=== PATIENT | male | born 1980 | race Caucasian/White ===

== ENCOUNTER 2023-08-19 13:07 | Emergency (ER) | payer SELFPAY ==
[2023-08-19] VITALS (8 sets, daily range): BP systolic 127–166; BP diastolic 74–87; PULSE 59–88; RESP 16–24; TEMP 36.8; O2SAT 94–97; BMI 39.9
--- NOTE | 2023-08-19 13:04 | ECG_ITS ---
APPROVED REPORT Exam: Resting ECG HR:75 bpm ECG Measurements Heart Rate 75 AXES RI 140 P 55 QRSd 117 QRS 56 QT 354 T 70 QTc 383 Conclusion SINUS RHYTHM WITH SINUS ARRHYTHMIA INCOMPLETE RIGHT BUNDLE BRANCH BLOCK [90+ ms QRS DURATION, TERMINAL R IN V1/V2, 40+ ms S IN I/aVL/V4/V5/V6] BORDERLINE ECG UNCONFIRMED REPORT Electronically signed by : Matt Munoz MD 08/20/2023 14:47:38
--- NOTE | 2023-08-19 13:19 | XR_ITS ---
FINAL REPORT TECHNIQUE: Chest PA & Lateral CLINICAL HISTORY: chest pain x 1 day smoker (unknown for how long) COMPARISON: None FINDINGS: 2 views of the chest were performed. The heart size is normal. The mediastinum is within normal limits. There is no acute cardiopulmonary process. Mild chronic changes are noted bilaterally. There are no pleural effusions. There is no pneumothorax. The bony thorax appears intact. IMPRESSION: No acute cardiopulmonary process. Reviewed, Interpreted and Dictated by Cordell Asher MD Transcribed by Gladys Marroquin Authenticated and [facility]
--- NOTE | 2023-08-19 13:30 | PC.NURSE ---
pt to xray
[2023-08-19 13:34] LABS: Basophils # 0.1 K/mm3 (0-0.2); Basophils % 1.1 % (0.1-2.0); Eosinophils # 0.3 K/mm3 (0.0-0.4); Eosinophils % 2.8 % (0.1-12.0); Hematocrit 45.9 % (42.0-52.0); Hemoglobin 15.8 g/dL (14.1-18.0); Lymphocytes # 2.9 K/mm3 (0.7-4.5); Lymphocytes % 31.8 % (10-50); Mean Corpuscular HGB Conc 34.5 g/dL (31.8-35.4); Mean Corpuscular Hemoglobin 32.3 pg (27.0-31.2); Mean Corpuscular Volume 93.6 fl (80-94); Mean Platelet Volume 9.1 fl (7.4-10.4); Monocytes # 0.6 K/mm3 (0.1-1.0); Monocytes % 6.5 % (1.7-9.3); Neutrophils # 5.2 K/mm3 (1.8-7.8); Neutrophils % 57.9 % (37.0-80.0); Platelet Count 249 K/mm3 (142-424); Red Cell Distribution Width 13.1 % (11.5-17.5); White Blood Count 8.9 K/mm3 (4.8-10.8)
--- NOTE | 2023-08-19 13:38 | PC.NURSE ---
pt back to room from xray
[2023-08-19 13:40] LABS: Alanine Aminotransferase 53 U/L (12-78); Albumin Level 4.5 g/dl (3.5-5.0); Albumin/Globulin Ratio 1.5 (1.1-1.8); Alkaline Phosphatase 67 U/L (38-126); Aspartate Amino Transferase 43 U/L (17-59); Bilirubin,Total 0.5 mg/dl (0.2-1.3); Blood Urea Nitrogen 16 mg/dl (9-20); Calcium 8.9 mg/dl (8.4-10.2); Carbon Dioxide 28 mmol/L (22.0-30.0); Chloride 103 mmol/L (98-107); Estimated Glomerular Filt Rate 82 ml/min (>60); GFR (African American) 99 ML/MIN (>60); Glucose 112 mg/dl (74-100); Lipase 73 U/L (23-300); Sodium 138 mmol/L (136-145); Total Protein,Serum 7.5 g/dl (6.3-8.2)
--- NOTE | 2023-08-19 13:44 | HMH.EDGENADL ---
Discharge Plan Disposition Patient Disposition: Home, Self-Care Prescriptions Prescriptions: No Action gabapentin 800 MG Tablet 800 mg PO TID prednisone 20 MG Tablet 20 mg PO BID Qty: 10 0RF Referrals Follow up/Referrals: Provider,Referral, MD [Primary Care Provider] - See instructions Activity Restrictions/Add. Instructions Additional Instructions/Restrictions: Call your family doctor to establish care for this visit to the emergency department and schedule follow-up within 48 hours to ensure improvement. If you have any worsening of your condition or any other concerning signs or symptoms, return to the emergency department or your primary care doctor for further evaluation. Clinical Impressions Clinical Impression: Chest pain Discharge ED Provider: [facility] HPI <Zainab Bell DO - Last Filed: 08/19/23 15:14> General Chief complaint: Chest Pain Stated complaint: cp Time Seen by Provider: 08/19/23 13:13 History of Present Illness HPI narrative: This patient is a 43-year-old male who is a smoker presenting to the emergency department for evaluation with concern for left-sided chest pain. It is nonradiating. He describes it as sharp and stabbing. It is worse with movements. It started just prior to arrival while he was at work. He is a rod welder. He denies experiencing any like this in the past, he denies any other symptoms, such as shortness of breath, nausea, diaphoresis, or other issues. He does not follow regularly with a doctor. No other recent concerns noted. Related Data Home Medications Medication Instructions Recorded Confirmed gabapentin 800 mg tablet 800 mg PO TID back pain 06/09/18 06/09/18 Previous Rx's Medication Instructions Recorded prednisone 20 mg tablet 20 mg PO BID ##10 06/10/18 Allergies Allergy/AdvReac Type Severity Reaction Status Date / Time From Codeine Sulfate Allergy Unknown Uncoded 08/24/17 14:40 From Penicillin V Potassium Allergy Unknown Uncoded 08/24/17 14:40 Penicillin Allergy Unknown Uncoded 08/24/17 14:40 PFSH <Zainab Bell DO - Last Filed: 08/19/23 15:14> [facility] Disclaimer: The information contained in this section may have been updated after the patient was seen, as this information can be updated by other users. Social History (Updated 08/19/23 @ 15:14 by Zainab Bell DO) Smoking Status: Current every day smoker alcohol intake: never current occupational status: employed Travel in the last 8 weeks: None <Zainab Bell DO - Last Filed: 08/19/23 15:14> ROS Obtained: Yes All systems reviewed & no additional complaints except as documented Physical Exam <Zainab Pam BedoyaDO sierra - Last Filed: 08/19/23 15:14> General General appearance: alert, in no apparent distress and obese Head Head exam: atraumatic and normocephalic Eye Eye exam: Present normal appearance, PERRL and EOMI ENT ENT exam: Present normal exam, normal oropharynx, mucous membranes moist and normal external ear exam Neck Neck exam: Present normal inspection, full ROM and trachea midline; Absent tenderness Chest Chest inspection: Present normal inspection and symmetric chest wall rise; Absent tenderness Respiratory Respiratory exam: Present normal lung sounds bilaterally; Absent respiratory distress, wheezes, stridor or accessory muscle use Cardiovascular Cardiovascular exam: Present regular rate and normal rhythm Abdominal Exam Abdominal exam: Present soft; Absent distention, tenderness or guarding Extremities Exam Extremities exam: Present normal inspection, full ROM and normal capillary refill; Absent tenderness or edema Back Exam Back exam: Present normal inspection and full ROM; Absent tenderness Neurological Exam Neurological exam: Present alert, oriented X3, CN II-XII intact and normal gait; Absent motor sensory deficit Psychiatric Psychiatric exam: Present normal affect and normal mood Skin Skin exam: Present warm and dry Medical D
[2023-08-19 14:44] LABS: Troponin I < 0.01 ng/ml (0.00-0.034)
[2023-08-19 16:37] LABS: Troponin I < 0.01 ng/ml (0.00-0.034)
== END 2023-08-19 16:47 | disposition home or self-care (01) ==
PROVIDERS: Emergency Medicine; Emergency Provider Emergency Medicine
DX: R07.9 Chest pain, unspecified (principal); F17.200 Nicotine dependence, unspecified, uncomplicated; I45.19 Other right bundle-branch block
CPT/HCPCS: 71046; 80053; 83690; 84484; 85025; 93005; 99285

== ENCOUNTER 2024-03-08 17:21 | Inpatient (IN) | payer SELFPAY ==
[2024-03-08 17:22] VITALS: BP 123/80; PULSE 114; RESP 18; TEMP 37; O2SAT 96; BMI 38.6
--- NOTE | 2024-03-08 17:22 | PC.NURSE ---
PT REPORTS HEAT STROKE SYMPTOMS PT REPORTS BUILDING FENCE AND BEING HOT ALL DAY. WENT HOME AND SHOWERED AND BECAME DIZZY. REPORTS PAIN ALL OVER B/P 123/80 HR 107 RESP 18 SAT 96% PT PROVIDED BOTTLED WATER, DR JOEL NOTIFIED
--- NOTE | 2024-03-08 17:32 | PC.NURSE ---
came up to registration asking about wait time. Registration asked if patient was having any chest pain, the said no, not today . Let them know we would bring him back as soon as we could.
--- NOTE | 2024-03-08 17:33 | PC.NURSE ---
provided water to patient at this time.
[2024-03-08] MEDS: KETOROLAC 30MG/ML VIAL 15 MG IV (17:59)
[2024-03-08] MEDS: LACTATED RINGERS 1000ML 2,000 ML 999 ML IV (18:00)
[2024-03-08 18:01] VITALS: BP 121/76; PULSE 100; RESP 18; O2SAT 98
--- NOTE | 2024-03-08 18:05 | PC.NURSE ---
DR JOEL AT BEDSIDE
[2024-03-08 18:12] LABS: Basophils # 0.2 K/mm3 (0-0.2); Eosinophils # 0.1 K/mm3 (0.0-0.4); Eosinophils % 0.7 % (0.1-12.0); Hematocrit 54.8 % (42.0-52.0); Hemoglobin 17.9 g/dL (14.1-18.0); Lymphocytes # 2.8 K/mm3 (0.7-4.5); Lymphocytes % 19.3 % (10-50); Mean Corpuscular HGB Conc 32.7 g/dL (31.8-35.4); Mean Corpuscular Hemoglobin 31.7 pg (27.0-31.2); Mean Corpuscular Volume 96.9 fl (80-94); Mean Platelet Volume 9.8 fl (7.4-10.4); Monocytes % 6.7 % (1.7-9.3); Neutrophils # 10.5 K/mm3 (1.8-7.8); Neutrophils % 72.2 % (37.0-80.0); Platelet Count 333 K/mm3 (142-424); Red Blood Count 5.65 M/mm3 (4.60-6.20); Red Cell Distribution Width 13.8 % (11.5-17.5); White Blood Count 14.5 K/mm3 (4.8-10.8)
[2024-03-08 18:18] LABS: Chloride 102 mmol/L (98-107)
[2024-03-08 18:19] LABS: Sodium 142 mmol/L (136-145)
[2024-03-08 18:21] LABS: Alanine Aminotransferase 85 U/L (12-78); Aspartate Amino Transferase 59 U/L (17-59); Blood Urea Nitrogen 21 mg/dl (9-20); Creatine Kinase 354 U/L (55-170); Creatinine Clearance Estimated 49 mL/min (50-200); Estimated Glomerular Filt Rate 19 ml/min (>60); GFR (African American) 23 ML/MIN (>60); Magnesium 1.9 mg/dl (1.6-2.3)
[2024-03-08 18:22] LABS: Albumin Level 5.8 g/dl (3.5-5.0); Albumin/Globulin Ratio 1.2 (1.1-1.8); Alkaline Phosphatase 126 U/L (38-126); Bilirubin,Total 0.9 mg/dl (0.2-1.3); Calcium 11.5 mg/dl (8.4-10.2); Carbon Dioxide 20 mmol/L (22.0-30.0); Glucose 175 mg/dl (74-100); Total Protein,Serum 10.8 g/dl (6.3-8.2)
--- NOTE | 2024-03-08 18:25 | PC.NURSE ---
DR JOEL SPEAKING WITH DR ELKINS
--- NOTE | 2024-03-08 18:27 | HMH.EDGENADL ---
Discharge Plan Disposition Patient Disposition: Admitted Chief Complaint: Weakness Prescriptions Prescriptions: No Action gabapentin 800 MG Tablet 800 mg PO TID prednisone 20 MG Tablet 20 mg PO BID Qty: 10 0RF Referrals Follow up/Referrals: Provider,Referral, MD [Primary Care Provider] - See instructions Clinical Impressions Clinical Impression: Acute renal failure due to rhabdomyolysis, MUSA (acute kidney injury), Acute dehydration, Heat exhaustion Discharge ED Provider: [facility] HPI General Chief complaint: Weakness Stated complaint: WEAKNESS Time Seen by Provider: 03/08/24 18:00 Mode of Arrival: Ambulatory Source of Information: Patient Limitations: No Limitations Description of Symptoms (Recalled from ER Triage Doc. by RN): PT REPORTS HEAT STROKE HAS BEEN BUILDING FENCE ALL DAY. REPORTS GENERALIZED PAIN AND MUSCLE SPASMS. History of Present Illness HPI narrative: Please note that above description of symptoms, in this electronic medical record under categorization of recalled from ER triage doctor by RN are reflective of an initial nursing assessment, however, is not reflective of my full history and physical exam that was personally taken and clarified. Consequentially, this preceding description of symptoms, which may include the patient's categorized chief complaint in the EMR, do not reflect my personal clinical impression, and the ultimate description of history of present illness and patient stated complaints should be deferred to this section of the note. Unless stated otherwise or congruent with this section of the note, additional signs, symptoms, or incongruence should be interpreted as inaccurate with my clinical impression. Related Data Home Medications Medication Instructions Recorded Confirmed gabapentin 800 mg tablet 800 mg PO TID back pain 06/09/18 06/09/18 Previous Rx's Medication Instructions Recorded prednisone 20 mg tablet 20 mg PO BID ##10 06/10/18 Allergies Allergy/AdvReac Type Severity Reaction Status Date / Time From Codeine Sulfate Allergy Unknown Uncoded 08/24/17 14:40 From Penicillin V Potassium Allergy Unknown Uncoded 08/24/17 14:40 Penicillin Allergy Unknown Uncoded 08/24/17 14:40 [facility] Disclaimer: The information contained in this section may have been updated after the patient was seen, as this information can be updated by other users. Social History (Updated 08/19/23 @ 15:14 by Zainab Bell DO) Smoking Status: Current every day smoker alcohol intake: never current occupational status: employed Travel in the last 8 weeks: None ROS Obtained: Yes All systems reviewed & no additional complaints except as documented Physical Exam General General appearance: alert and in no apparent distress Head Head exam: atraumatic and normocephalic Eye Eye exam: Present normal appearance, PERRL and EOMI ENT ENT exam: Present mucous membranes dry Neck Neck exam: Present normal inspection, full ROM and trachea midline Respiratory Respiratory exam: Present normal lung sounds bilaterally; Absent respiratory distress, wheezes, stridor, accessory muscle use or prolonged expiratory phase Cardiovascular Cardiovascular exam: Present regular rate and normal rhythm Abdominal Exam Abdominal exam: Present soft; Absent distention, tenderness, guarding, rebound or rigidity Extremities Exam Extremities exam: Absent edema Neurological Exam Neurological exam: Present alert, oriented X3, CN II-XII intact and normal gait; Absent motor sensory deficit Skin Skin exam: Present warm, dry and erythema (Diffuse erythema, sunburn); Absent diaphoresis Medical Decision Making Medical Records Medical records reviewed: Yes I reviewed the patient's medical records. Sinan Inquiry Pt receiving controlled substance: No Sinan was queried for this patient: No Vital Signs: 03/08/24 17:22 03/08/24 18:01 Temperature 98.6 F Temperature Source Oral Pulse Rate 100 H Pulse Rate [Radial] 114 H Respiratory Rate 18 18 Blood Pressure 121/76 Blood Pressure [Left Arm] 123/80 Blood Pressure Mean [Left Arm] 94 Blood Pressure Source [Left Arm] Automatic Cuff Blood Pressure Position [Left Arm] Sitting 02 Sat by Pulse Oximetry 96 98 Oxygen Delivery Method Room Air Room Air Lab Data Lab Results 03/08/24 17:45: WBC 14.5 H, RBC 5.65, Hgb 17.9, Hct 54.8 H, MCV 96.9 H, MCH 31.7 H, MCHC 32.7, RDW 13.8, Plt Count 333, MPV 9.8, Neut % (Auto) 72.2, Lymph % (Auto) 19.3, [place] % (Auto) 6.7, Eos % (Auto) 0.7, Baso % (Auto) 1.0, Neut # (Auto) 10.5 H, Lymph # (Auto) 2.8, [place] # (Auto) 1.0, Eos # (Auto) 0.1, Baso # (Auto) 0.2, Sodium 142, Potassium 4.0, Chloride 102, Carbon Dioxide 20 L, Anion Gap 24.0 H, BUN 21 H, Creatinine 3.60 H, Estimated Creat Clear 49, Estimated GFR 19 L*, Est GFR ( Amer) 23 L, Glucose 175 H, Calcium 11.5 H, Magnesium 1.9, Total Bilirubin 0.9, AST 59, ALT 85 H, Alkaline Phosphatase 126, Total Creatine Kinase 354 H, Total Protein 10.8 H D, Albumin 5.8 H, Globulin 5.0 H, Albumin/Globulin Ratio 1.2 03/08/24 17:45 03/08/24 17:45 Orders (Tests/Meds): ED MEDICATIONS Generic Name Dose Route Start Last Admin Trade Name Freq PRN Reason Stop Dose Admin Lactated Ringer's 2,000 mls @ 999 mls/hr 03/08/24 17:55 03/08/24 18:00 Lactated Ringer's 1000 Ml Bag IV 03/08/24 19:55 999 mls/hr .Q2H1M ONE Administration Sodium Chloride 10 ml 03/08/24 17:55 Sodium Chloride 0.9% 10ml Flush Syringe IV 04/07/24 17:54 NEEDED PRN Maintain IV Site Discontinued Medications Generic Name Dose Route Start Last Admin Trade Name Freq PRN Reason Stop Dose Admin Ketorolac Tromethamine 15 mg 03/08/24 17:55 03/08/24 17:59 Ketorolac 30mg/Ml Vial IV 03/08/24 17:56 15 mg ONCE ONE Administration ORDERS Category Date Time Status CK [Creatine Kinase] Stat Lab 03/08/24 17:45 Completed Complete Blood Count Auto Diff Stat Lab 03/08/24 17:45 Completed Comprehensive Metabolic Panel Stat Lab 03/08/24 17:45 Completed Magnesium Stat Lab 03/08/24 17:45 Completed Medical Decision Narrative: 43-year-old male history of COPD still smoking 2 packs a day presenting with concern for heat exhaustion. Patient worked out in the sun with heat index right around 100 ?F only drank a couple bottles of water today. [place] nauseated, lightheaded, muscle cramps. Got in the shower took a hot shower. Thought this would help. [place] generally weak, started having muscle cramps. Vomited twice, nonbloody. Patient did not have syncopal episode or confusion. Patient brought in by family because he was feeling so poorly. States that he is no longer feeling nauseated, just weak and intermittently having muscle cramps. History was obtained via conversation with patient. On arrival, patient hemodynamically stable, alert, oriented x4, appropriate, GCS 15, moving all extremities spontaneously, pupils equal and reactive to light. Full physical exam performed and significant for sunburn male in no acute distress. Intermittently having extremity cramps. Differential includes heat exhaustion, metabolic, rhabdomyolysis, dehydration, MUSA, among others. Patient was given 2 L of fluid for symptomatic management and correction of underlying abnormalities. Workup independently interpreted and significant for leukocytosis 14.5, hemoglobin hemoconcentrated at 18. Patient's chemistry concerning for metabolic acidosis with CO2 low at 20, anion gap 24, creatinine 3.6, BUN 21. Patient's GFR 19 from normal baseline. Patient's CK also elevated at 354. On reevaluation, patient resting at baseline, feeling better, no nausea after 2 L fluids. Hospital medicine contacted and case was discussed at length for admission given MUSA and rhabdo. Agreeable to admission. It Technical Support Specialist disclaimer Much of this encounter note is an electronic channel program manager spoken language to printed text. Electronic channel program manager of the spoken language may permit errors. Although I have reviewed the note, some errors may still exist. Critical Care Critical Care Time Critical Care Time: Yes (Renal) Attestation: On 03/08/24, the high probability of a clinically significant, sudden or life threatening deterioration of the following system(s) required my full and direct attention, intervention and personal management. The time I documented below is in addition to time spent performing reported procedures but includes the following listed in this critical care notation. Total Time Total Critical Care Time: 35
--- NOTE | 2024-03-08 18:28 | PC.NURSE ---
FINISHED GOODS PLANNER NOTIFIED OF ADMISSION
--- NOTE | 2024-03-08 18:33 | PC.NURSE ---
DR JOEL AT BEDSIDE TO UPDATE PT
--- NOTE | 2024-03-08 18:39 | PC.NURSE ---
Registration called in regards to patient not being switched in computer to admission.
--- NOTE | 2024-03-08 18:46 | PC.NURSE ---
Called report to Jeannette Méndez RN
[2024-03-08 18:52] VITALS: BP 121/76; PULSE 100; RESP 18; TEMP 37.1; O2SAT 100
[2024-03-08 19:00] VITALS: BP 138/84; PULSE 95; RESP 18; TEMP 36.6; O2SAT 98; BMI 36.8
[2024-03-08] MEDS: LACTATED RINGERS 1000ML 1,000 ML 150 ML IV (19:41)
--- NOTE | 2024-03-08 19:49 | P.HP_ITS ---
History of Present Illness *Admission Date: 03/08/24 *Reason for visit:: generalized pain and muscle spams *History of present illness: This is a 43-year-old obese male with significant history of daily heavy smoker, 2 packs a day presented to ED with c/o generalized pain and muscle spams. He expressed concern for heat exhaustion. Patient worked out in the sun. [place] nauseated, lightheaded, muscle cramps. Got in the shower took a hot shower. Thought this would help. [place] generally weak, started having muscle cramps. Vomited twice, nonbloody. Patient did not have syncopal episode or confusion. Patient brought in by family because he was feeling so poorly. States that he is no longer feeling nauseated, just weak and intermittently having muscle cramps. History was obtained via conversation with patient. Admitted for further management [facility] Disclaimer: The information contained in this section may have been updated after the patient was seen, as this information can be updated by other users. Surgical History (Updated 03/08/24 @ 19:57 by Brigitte Payne RN) H/O tooth extraction Social History (Updated 03/08/24 @ 19:57 by Brigitte Payne RN) Smoking Status: Current every day smoker alcohol intake: never current occupational status: employed Travel in the last 8 weeks: None Review of Systems Review of Systems Review of systems:: pertinent systems reviewed and negative unless documented below Meds Home Medications and Allergies Home Medications Medication Instructions Recorded Confirmed Type No Known Home Medications 03/09/24 03/09/24 History New Prescriptions to Start Prescriptions: Allergies Allergy/AdvReac Type Severity Reaction Status Date / Time codeine Allergy Unknown Verified 03/09/24 08:54 allergy reaction Penicillins Allergy Unknown Verified 03/09/24 08:54 allergy reaction Exam Data for Last 24 hours Vital signs and Labs for Last 24 Hours: Temp Pulse Resp BP Pulse Ox O2 Del Method 98 F 95 H 18 138/84 98 Room Air 03/08/24 19:00 03/08/24 19:00 03/08/24 19:00 03/08/24 19:00 03/08/24 19:00 03/08/24 19:00 Laboratory Results - last 24 hr 03/08/24 17:45: WBC 14.5 H, RBC 5.65, Hgb 17.9, Hct 54.8 H, MCV 96.9 H, MCH 31.7 H, MCHC 32.7, RDW 13.8, Plt Count 333, MPV 9.8, Neut % (Auto) 72.2, Lymph % (Auto) 19.3, [place] % (Auto) 6.7, Eos % (Auto) 0.7, Baso % (Auto) 1.0, Neut # (Auto) 10.5 H, Lymph # (Auto) 2.8, [place] # (Auto) 1.0, Eos # (Auto) 0.1, Baso # (Auto) 0.2, Sodium 142, Potassium 4.0, Chloride 102, Carbon Dioxide 20 L, Anion Gap 24.0 H, BUN 21 H, Creatinine 3.60 H, Estimated Creat Clear 49, Estimated GFR 19 L*, Est GFR ( Amer) 23 L, Glucose 175 H, Calcium 11.5 H, Magnesium 1.9, Total Bilirubin 0.9, AST 59, ALT 85 H, Alkaline Phosphatase 126, Total Creatine Kinase 354 H, Total Protein 10.8 H D, Albumin 5.8 H, Globulin 5.0 H, Albumin/Globulin Ratio 1.2 I & O for Last 24 hours: Intake & Output 03/05/24 03/06/24 03/07/24 03/08/24 23:59 23:59 23:59 23:59 Weight 123.559 kg Constitutional Constitutional: no acute distress, obese and cooperative *Routine HEENT Exam Head: Present normocephalic and atraumatic Eye: Present EOMI and PERRL ENT: Present mucous membranes moist *Routine Neck Exam Neck: Present supple; Absent lymphadenopathy *Routine Respiratory Exam Respiratory: Present CTA bilaterally, normal respiratory effort and symmetric chest movement; Absent respiratory distress *Routine Cardiovascular Exam Cardiovascular: Present RRR, Normal S1 and Normal S2 *Routine Abdominal Exam Abdominal: Present soft, normoactive bowel sounds and obese; Absent tenderness *Routine Rectal Exam Rectal:: deferred *Routine Genitalia Exam Genitalia:: deferred *Routine Extremities Exam Extremities: Absent cyanosis, clubbing or edema *Routine Skin Exam Skin: Present erythema and warm; Absent rash Comments: extensive upper body sunburn *Routine Neurological Exam Neurological: Present alert, oriented X3, normal reflexes, moving all extremities and normal speech Routine Psychiatric Exam Psychiatric: Present normal thought process and good insight H&P: Result Imaging and Cardiology EKG: Status: image reviewed by me, Preliminary report and final report Assessment and Plan *Assessment and plan (1) Acute renal failure due to rhabdomyolysis: Status: Acute Category: Medical Code(s): N17.9 - Acute kidney failure, unspecified; M62.82 - Rhabdomyolysis (2) Acute dehydration: Status: Acute Category: Medical Code(s): E86.0 - Dehydration (3) Heat exhaustion: Status: Acute Qualifiers: Encounter type: initial encounter Qualified Code(s): T67.5XXA - Heat exhaustion, unspecified, initial encounter Category: Medical Code(s): T67.5XXA - Heat exhaustion, unspecified, initial encounter (4) Current smoker: Status: Acute Category: Social Hx Code(s): F17.200 - Nicotine dependence, unspecified, uncomplicated (5) Obesity: Status: Acute Qualifiers: Body mass index: BMI 36.0-36.9 Obesity classification: adult class 2 (BMI 35 - 39.9) Obesity type: unspecified obesity type Serious obesity comorbidity presence: unspecified whether serious comorbidity present Qualified Code(s): E66.9 - Obesity, unspecified; Z68.36 - Body mass index [BMI] 36.0-36.9, adult Category: Medical Code(s): E66.9 - Obesity, unspecified Plan 43 year-old obese male with significant history of daily heavy smoker, 2 packs a day presented to ED with c/o generalized pain and muscle spams. He expressed concern for heat exhaustion.On arrival, patient hemodynamically stable, alert, oriented x4, appropriate, GCS 15, moving all extremities spontaneously, positive for significant sunburn. No in acute distress. Intermittently having extremity cramps. Initial work up showed significant leukocytosis 14.5, hemoglobin hemoconcentrated at 18. Patient's chemistry concerning for metabolic acidosis with CO2 low at 20, anion gap 24, creatinine 3.6, BUN 21. Patient's GFR 19 from normal baseline. Patient's CK also elevated at 354. Concerned for MUSA with rhabdo. Finding discussed with the ED. we agreed for admission and inpatient management. Plan as follow: -Acute renal failure with rhabdomyolysis secondary to heatstroke and acute dehydration: Admit patient for inpatient management. Continue IV resuscitation. Currently LR at 125 MLS per hour. Monitor renal output. Avoid nephrotoxic medication Tylenol for pain management Methocarbamol 1000 mg twice daily for muscle spasm Repeat labs in the morning Watch creatinine and CK Rest of the vitals per unit Encourage increasing p.o. intake -Current daily smoker Counseling about smoking cessation. On nicotine patch -Obesity: Encouraged him to start weight reduction management. PCP to follow-up abnormal BMI Lovenox for DVT prophylaxis. Protonix for GI protection Full code Regular diet Rounded on patient after nurse practitioner. Personally examined and interviewed patient. Agree with exam findings and care plan as documented.
[2024-03-08 20:00] VITALS: BP 122/81; PULSE 83; RESP 16; TEMP 36.7; O2SAT 96
[2024-03-08] MEDS: ENOXAPARIN 40MG/0.4ML SYRINGE 40 MG SQ (21:59)
[2024-03-08] MEDS: NICOTINE 21MG/24HR PATCH 21 MG TD (21:59)
[2024-03-08] MEDS: ACETAMINOPHEN 325MG TAB 650 MG PO (22:00)
[2024-03-08] MEDS: METHOCARBAMOL 500MG TABLET 1000 MG PO (22:00)
[2024-03-08 22:31] LABS: Chloride 101 mmol/L (98-107); Potassium 4.1 mmoL/L (3.5-5.1); Sodium 140 mmol/L (136-145)
[2024-03-08 22:34] LABS: Anion Gap 16.1 mEq/L (5-15); Blood Urea Nitrogen 25 mg/dl (9-20); Carbon Dioxide 27 mmol/L (22.0-30.0); Creatinine Clearance Estimated 43 mL/min (50-200); Estimated Glomerular Filt Rate 17 ml/min (>60); GFR (African American) 21 ML/MIN (>60)
[2024-03-08 22:35] LABS: Calcium 10.5 mg/dl (8.4-10.2); Glucose 116 mg/dl (74-100)
[2024-03-09] MEDS: LACTATED RINGERS 1000ML 1,000 ML 150 ML IV ×3 (02:13→15:34)
[2024-03-09 04:00] VITALS: BP 129/76; PULSE 61; RESP 16; TEMP 36.7; O2SAT 96; BMI 37.8
--- NOTE | 2024-03-09 06:11 | PC.NURSE ---
Pt has rested the majority of the night. He did complain of some muscle spasms in his lower back early in the shift . An order for methocarbamol was obtained to help with the pain. Family member has been at bedside throughout shift. He has had no other complaints at this time call light within reach.
[2024-03-09 06:16] LABS: Basophils # 0.1 K/mm3 (0-0.2); Eosinophils # 0.2 K/mm3 (0.0-0.4); Monocytes # 0.9 K/mm3 (0.1-1.0)
[2024-03-09 06:24] LABS: Chloride 104 mmol/L (98-107); Potassium 3.1 mmoL/L (3.5-5.1); Sodium 136 mmol/L (136-145)
[2024-03-09 06:26] LABS: Alanine Aminotransferase 49 U/L (12-78); Alkaline Phosphatase 82 U/L (38-126); Anion Gap 12.1 mEq/L (5-15); Aspartate Amino Transferase 36 U/L (17-59); Bilirubin,Total 0.6 mg/dl (0.2-1.3); Blood Urea Nitrogen 31 mg/dl (9-20); Carbon Dioxide 23 mmol/L (22.0-30.0); Creatine Kinase 690 U/L (55-170); Estimated Glomerular Filt Rate 20 ml/min (>60); GFR (African American) 24 ML/MIN (>60); Glucose 122 mg/dl (74-100)
[2024-03-09 06:27] LABS: Albumin Level 4.1 g/dl (3.5-5.0); Albumin/Globulin Ratio 1.4 (1.1-1.8); Calcium 9.2 mg/dl (8.4-10.2); Magnesium 1.9 mg/dl (1.6-2.3); Total Protein,Serum 7.1 g/dl (6.3-8.2)
[2024-03-09 06:41] LABS: Basophils % 0.9 % (0.1-2.0); Hematocrit 45.4 % (42.0-52.0); Lymphocytes # 3.5 K/mm3 (0.7-4.5); Lymphocytes % 29.4 % (10-50); Mean Corpuscular HGB Conc 32.7 g/dL (31.8-35.4); Mean Corpuscular Hemoglobin 32.4 pg (27.0-31.2); Mean Platelet Volume 9.8 fl (7.4-10.4); Monocytes % 7.7 % (1.7-9.3); Neutrophils # 7.2 K/mm3 (1.8-7.8); Neutrophils % 60.1 % (37.0-80.0); Platelet Count 238 K/mm3 (142-424); Red Blood Count 4.58 M/mm3 (4.60-6.20); Red Cell Distribution Width 13.7 % (11.5-17.5)
[2024-03-09 06:42] LABS: Creatinine Clearance Estimated 51 mL/min (50-200)
[2024-03-09 06:44] LABS: Hemoglobin 14.9 g/dL (14.1-18.0)
[2024-03-09 08:00] VITALS: BP 122/79; PULSE 64; RESP 20; TEMP 36.8; O2SAT 95
[2024-03-09] MEDS: METHOCARBAMOL 500MG TABLET 1000 MG PO ×2 (09:02→20:01)
[2024-03-09] MEDS: POTASSIUM CHLORIDE 20MEQ TAB 40 MEQ PO ×3 (09:03→20:02)
--- NOTE | 2024-03-09 10:45 | P.PN_ITS ---
Subjective *Date: 03/09/24 *Time: 11:32 Interval history: Patient feeling better this morning. Denies any muscle aches or pains. No nausea or vomiting. No chest pain or shortness of breath. Stable on room air. Making urine. Medical Exam Vital signs and Labs for Last 24 Hours: Vital Signs Temp Pulse Pulse Resp BP BP Pulse Ox 03/09/24 09:00 03/09/24 08:00 03/09/24 08:00 98.2 F 64 20 122/79 95 03/09/24 06:59 03/09/24 05:00 03/09/24 04:00 98.0 F 61 16 129/76 96 03/09/24 03:00 03/09/24 01:00 03/08/24 22:58 03/08/24 21:00 03/08/24 20:00 98.1 F 83 16 122/81 96 03/08/24 19:59 03/08/24 19:00 98 F 95 H 18 138/84 98 03/08/24 18:52 98.7 F 100 H 18 121/76 03/08/24 18:01 100 H 18 121/76 98 03/08/24 17:22 98.6 F 114 H 18 123/80 96 O2 Del Method 03/09/24 09:00 Room Air 03/09/24 08:00 Room Air 03/09/24 08:00 Room Air 03/09/24 06:59 Room Air 03/09/24 05:00 Room Air 03/09/24 04:00 Room Air 03/09/24 03:00 Room Air 03/09/24 01:00 Room Air 03/08/24 22:58 Room Air 03/08/24 21:00 Room Air 03/08/24 20:00 Room Air 03/08/24 19:59 Room Air 03/08/24 19:00 Room Air 03/08/24 18:52 Room Air 03/08/24 18:01 Room Air 03/08/24 17:22 Room Air Intake and Output 03/08/24 03/09/24 03/09/24 23:59 07:59 15:59 Intake Total 1655 / 5 460 / 2115 Output Total 0 / 0 150 / 150 Balance 0 / 0 1505 / 1965 460 / 1965 Intake: Intake, Oral Amount 460 / 460 Intake, Total IV Amount 1655 / 1655 Lactated Ringers 1000ML 1,000 1655 / 1655 ml @ 150 mls/hr IV .[id number] [facility] Rx#:[id number] Output: Output, Urine Amount 0 / 0 150 / 150 Other: Number of Unmeasured Voids 1 Weight 123.559 kg 126.609 kg Patient Weight 03/09/24 23:59 Weight 126.609 kg Laboratory Results - last 24 hr 03/08/24 17:45: WBC 14.5 H, RBC 5.65, Hgb 17.9, Hct 54.8 H, MCV 96.9 H, MCH 31.7 H, MCHC 32.7, RDW 13.8, Plt Count 333, MPV 9.8, Neut % (Auto) 72.2, Lymph % (Auto) 19.3, [place] % (Auto) 6.7, Eos % (Auto) 0.7, Baso % (Auto) 1.0, Neut # (Aut o) 10.5 H, Lymph # (Auto) 2.8, [place] # (Auto) 1.0, Eos # (Auto) 0.1, Baso # (Auto) 0.2, Sodium 142, Potassium 4.0, Chloride 102, Carbon Dioxide 20 L, Anion Gap 24.0 H, BUN 21 H, Creatinine 3.60 H, Estimated Creat Clear 49, Estimated GFR 19 L*, Est GFR ( Amer) 23 L, Glucose 175 H, Calcium 11.5 H, Magnesium 1.9, Total Bilirubin 0.9, AST 59, ALT 85 H, Alkaline Phosphatase 126, Total Creatine Kinase 354 H, Total Protein 10.8 H D, Albumin 5.8 H, Globulin 5.0 H, Albumin/Globulin Ratio 1.2 03/08/24 22:13: Sodium 140, Potassium 4.1, Chloride 101, Carbon Dioxide 27, Anion Gap 16.1 H, BUN 25 H, Creatinine 3.90 H, Estimated Creat Clear 43, Estimated GFR 17 L*, Est GFR ( Amer) 21 L, Glucose 116 H D, Calcium 10.5 H 03/09/24 05:29: WBC 12.0 H, RBC 4.58 L, Hgb 14.9 D, Hct 45.4, MCV 99.0 H, MCH 32.4 H, MCHC 32.7, RDW 13.7, Plt Count 238 D, MPV 9.8, Neut % (Auto) 60.1, Lymph % (Auto) 29.4, [place] % (Auto) 7.7, Eos % (Auto) 2.0, Baso % (Auto) 0.9, Neut # (Auto) 7.2, Lymph # (Auto) 3.5, [place] # (Auto) 0.9, Eos # (Auto) 0.2, Baso # (Auto) 0.1, Sodium 136, Potassium 3.1 L D, Chloride 104, Carbon Dioxide 23, Anion Gap 12.1, BUN 31 H, Creatinine 3.40 H, Estimated Creat Clear 51, Estimated GFR 20 L, Est GFR ( Amer) 24 L, Glucose 122 H, Calcium 9.2, Magnesium 1.9, Total Bilirubin 0.6, AST 36 D, ALT 49 D, Alkaline Phosphatase 82, Total Creatine Kinase 690 H* D, Total Protein 7.1 D, Albumin 4.1 D, Globulin 3.0, Albumin/Globulin Ratio 1.4 I & O for Labs for Last 24 Hours: Intake & Output 03/06/24 03/07/24 03/08/24 03/09/24 23:59 23:59 23:59 23:59 Intake Total 2115 / 2115 Output Total 0 / 0 150 / 150 Balance 0 / 0 1964 / 1964 Weight 123.559 kg 126.609 kg Constitutional: Present no acute distress, obese and cooperative Head: Present atraumatic and normocephalic ENT: Present normal exam Respiratory: Present normal respiratory effort; Absent rhonchi, wheezes or crack les Cardiac: Present Reg Rate and Rhythm GI: Present soft and normal bowel sounds; Absent distention or tenderness Extremities: Present normal inspection and full ROM; Absent tenderness Skin: Present intact; Absent erythema Neuro: Present Grossly Intact, alert, awake, oriented x 3 and moves all extremities Assessment and Plan *Assessment and plan (1) Acute renal failure due to rhabdomyolysis: Status: Acute Category: Medical Code(s): N17.9 - Acute kidney failure, unspecified; M62.82 - Rhabdomyolysis (2) Acute dehydration: Status: Acute Category: Medical Code(s): E86.0 - Dehydration (3) Heat exhaustion: Status: Acute Qualifiers: Encounter type: initial encounter Qualified Code(s): T67.5XXA - Heat exhaustion, unspecified, initial encounter Category: Medical Code(s): T67.5XXA - Heat exhaustion, unspecified, initial encounter (4) Current smoker: Status: Acute Category: Social Hx Code(s): F17.200 - Nicotine dependence, unspecified, uncomplicated (5) Obesity: Status: Acute Qualifiers: Body mass index: BMI 36.0-36.9 Obesity classification: adult class 2 (BMI 35 - 39.9) Obesity type: unspecified obesity type Serious obesity comorbidity presence: unspecified whether serious comorbidity present Qualified Code(s): E66.9 - Obesity, unspecified; Z68.36 - Body mass index [BMI] 36.0-36.9, adult Category: Medical Code(s): E66.9 - Obesity, unspecified Plan 43 year-old obese male with significant history of daily heavy smoker, 2 packs a day presented to ED with c/o generalized pain and muscle spams. He expressed concern for heat exhaustion.On arrival, patient hemodynamically stable, alert, oriented x4, appropriate, GCS 15, moving all extremities spontaneously, positive for significant sunburn. In no acute distress. Intermittently having extremity cramps. Initial work up showed significant leukocytosis 14.5, hemoglobin hemoconcentrated at 18. Patient's chemistry concerning for metabolic acidosis with CO2 low at 20, anion gap 24, creatinine 3.6, BUN 21. Patient's GFR 19 from normal baseline. Patient's CK also elevated at 354. Concerned for MUSA with rhabdo. Finding discussed with the ED. we agreed for admission and inpatient management. Feeling better today. Kidney function still abnormal. Continues to require inpatient management with IV hydration. Serial labs. Problems addressed as follows: Acute renal failure with rhabdomyolysis secondary to heatstroke and acute dehydration: Serial labs, repeat BMP this evening with repeat CMP, CBC, magnesium ordered for the morning. Continue IV resuscitation. Currently LR at 125 MLS per hour until 8 PM this evening Having urine output. Kidney function with BUN 31, creatinine 3.4. Avoid nephrotoxic medication Tylenol for pain management Methocarbamol 1000 mg twice daily for muscle spasm Repeat CK up to 690 this morning. Repeat level ordered for the morning. -Current daily smoker: Counseling about smoking cessation; On nicotine patch -Obesity: Complicates all aspects of his care. Lovenox for DVT prophylaxis. Full code Regular diet
[2024-03-09 16:00] VITALS: BP 125/97; PULSE 67; RESP 16; TEMP 36.7; O2SAT 96
[2024-03-09 18:06] LABS: Chloride 104 mmol/L (98-107); Potassium 3.7 mmoL/L (3.5-5.1); Sodium 137 mmol/L (136-145)
[2024-03-09 18:09] LABS: Anion Gap 7.7 mEq/L (5-15); Blood Urea Nitrogen 29 mg/dl (9-20); Carbon Dioxide 29 mmol/L (22.0-30.0); Creatinine Clearance Estimated 91 mL/min (50-200); Estimated Glomerular Filt Rate 39 ml/min (>60); GFR (African American) 47 ML/MIN (>60); Glucose 150 mg/dl (74-100)
--- NOTE | 2024-03-09 18:58 | PC.NURSE ---
A&OX4. TOLERATING RA WELL. AMBULATES INDEPENDENTLY IN ROOM. FAMILY REMAINS AT BEDSIDE. HAS HAD NO NEEDS OR C/O THUS FAR THIS SHIFT. REFUSES TO DRINK WATER, EDUCATION ON IMPORTANCE. IS HAVING MORE URINE OUTPUT. RECEIVING FLUIDS, VSS.
[2024-03-09 20:00] VITALS: BP 146/76; PULSE 71; RESP 18; TEMP 36.7; O2SAT 100
[2024-03-09] MEDS: ENOXAPARIN 40MG/0.4ML SYRINGE 40 MG SQ (20:01)
[2024-03-10 04:00] VITALS: BP 99/75; PULSE 69; RESP 20; TEMP 36.7; O2SAT 96; BMI 37.8
--- NOTE | 2024-03-10 06:16 | PC.NURSE ---
Pt is A&Ox4 and tolerating room air. He has been getting around the room independently. He has slept the majority of the shift. Family member has remained at bedside. He has no complaints at this time, call light within reach.
[2024-03-10 06:20] LABS: Basophils # 0.1 K/mm3 (0-0.2); Basophils % 0.8 % (0.1-2.0); Eosinophils # 0.1 K/mm3 (0.0-0.4); Eosinophils % 1.8 % (0.1-12.0); Hematocrit 42.1 % (42.0-52.0); Hemoglobin 13.9 g/dL (14.1-18.0); Lymphocytes # 3.1 K/mm3 (0.7-4.5); Mean Corpuscular HGB Conc 33.1 g/dL (31.8-35.4); Mean Corpuscular Hemoglobin 31.9 pg (27.0-31.2); Mean Corpuscular Volume 96.5 fl (80-94); Mean Platelet Volume 9.7 fl (7.4-10.4); Monocytes # 0.5 K/mm3 (0.1-1.0); Monocytes % 6.8 % (1.7-9.3); Neutrophils # 4.1 K/mm3 (1.8-7.8); Neutrophils % 51.6 % (37.0-80.0); Platelet Count 228 K/mm3 (142-424); Red Blood Count 4.37 M/mm3 (4.60-6.20); Red Cell Distribution Width 13.9 % (11.5-17.5)
[2024-03-10 06:24] LABS: Chloride 110 mmol/L (98-107); Potassium 4.3 mmoL/L (3.5-5.1); Sodium 137 mmol/L (136-145)
[2024-03-10 06:26] LABS: Blood Urea Nitrogen 23 mg/dl (9-20); Creatinine Clearance Estimated 133 mL/min (50-200); Estimated Glomerular Filt Rate 61 ml/min (>60); GFR (African American) 73 ML/MIN (>60)
[2024-03-10 06:27] LABS: Alanine Aminotransferase 42 U/L (12-78); Albumin Level 3.6 g/dl (3.5-5.0); Albumin/Globulin Ratio 1.3 (1.1-1.8); Alkaline Phosphatase 76 U/L (38-126); Anion Gap 6.3 mEq/L (5-15); Aspartate Amino Transferase 36 U/L (17-59); Bilirubin,Total 0.3 mg/dl (0.2-1.3); Calcium 8.8 mg/dl (8.4-10.2); Carbon Dioxide 25 mmol/L (22.0-30.0); Creatine Kinase 609 U/L (55-170); Globulin 2.7 g/dL (1.3-3.2); Glucose 120 mg/dl (74-100); Total Protein,Serum 6.3 g/dl (6.3-8.2)
[2024-03-10 06:28] LABS: Magnesium 1.9 mg/dl (1.6-2.3)
--- NOTE | 2024-03-10 06:55 | P.DS_ITS ---
General Admission date:: 03/08/24 Discharge date: 03/10/24 HPI HPI HPI: This is a 43-year-old obese male with significant history of daily heavy smoker, 2 packs a day presented to ED with c/o generalized pain and muscle spams. He expressed concern for heat exhaustion. Patient worked out in the sun. [place] nauseated, lightheaded, muscle cramps. Got in the shower took a hot shower. Thought this would help. [place] generally weak, started having muscle cramps. Vomited twice, nonbloody. Patient did not have syncopal episode or confusion. Patient brought in by family because he was feeling so poorly. States that he is no longer feeling nauseated, just weak and intermittently having muscle cramps. History was obtained via conversation with patient. Admitted for further management Hospital Course Hospital Course Hospital Course: 43 year-old obese male with significant history of daily heavy smoker, 2 packs a day presented to ED with c/o generalized pain and muscle spams. He expressed concern for heat exhaustion.On arrival, patient hemodynamically stable, alert, oriented x4, appropriate, GCS 15, moving all extremities spontaneously, positive for significant sunburn. In no acute distress. Intermittently having extremity cramps. Initial work up showed significant leukocytosis 14.5, hemoglobin he moconcentrated at 18. Patient's chemistry concerning for metabolic acidosis with CO2 low at 20, anion gap 24, creatinine 3.6, BUN 21. Patient's GFR 19 from normal baseline. Patient's CK also elevated at 354. Concerned for MUSA with rhabdo. Finding discussed with the ED. we agreed for admission and inpatient management. Patient some improvement with fluid resuscitation. Kidney function returned to almost baseline by day of discharge. CK remain mildly elevated but having no pain. Tolerating p.o. fluids. Stable to discharge home to continue to convalesce and continue fluid resuscitation orally. Problems addressed as follows: Acute renal failure with rhabdomyolysis secondary to heatstroke and acute dehydration: Patient admitted for MUSA with creatinine above 3 and elevated CK. Initiated on fluid resuscitation for rhabdomyolysis and MUSA. Responded well. Slow gradual improvement creatinine. BUN 23 and creatinine 1.3 on day of discharge. CK elevated at 609 on day of discharge but stable from the day before. Patient having no pain. Having adequate urine output. Tolerating p.o. intake. Stable to discharge home. Continue Tylenol for pain to avoid kidney injury from NSAIDs. Encouraged him to rest over the weekend and not do any strenuous activity. Would benefit for him to establish with PCP. Expressed interest in establishing with Dr. Munoz's office. Appointment made. -Current daily smoker: Counseling about smoking cessation; On nicotine patch -Obesity: Complicates all aspects of his care. Exam Data for Last 24 hours Vital signs and Labs for Last 24 Hours: Temp Pulse Resp BP Pulse Ox O2 Del Method 98.0 F 69 20 99/75 L 96 Room Air 03/10/24 04:00 03/10/24 04:00 03/10/24 04:00 03/10/24 04:00 03/10/24 04:00 03/10/24 06:51 Laboratory Results - last 24 hr 03/09/24 17:50: Sodium 137, Potassium 3.7, Chloride 104, Carbon Dioxide 29, Anion Gap 7.7, BUN 29 H, Creatinine 1.90 H D, Estimated Creat Clear 91, Estimated GFR 39 L, Est GFR ( Amer) 47 L D, Glucose 150 H D, Calcium 9.0 03/10/24 05:25: WBC 8.0 D, RBC 4.37 L, Hgb 13.9 L, Hct 42.1, MCV 96.5 H, MCH 31.9 H, MCHC 33.1, RDW 13.9, Plt Count 228, MPV 9.7, Neut % (Auto) 51.6, Lymph % (Auto) 39.0, [place] % (Auto) 6.8, Eos % (Auto) 1.8, Baso % (Auto) 0.8, Neut # (Auto) 4.1, Lymph # (Auto) 3.1, [place] # (Auto) 0.5, Eos # (Auto) 0.1, Baso # (Auto) 0.1, Sodium 137, Potassium 4.3, Chloride 110 H, Carbon Dioxide 25, Anion Gap 6.3, BUN 23 H, Creatinine 1.30 H D, Estimated Creat Clear 133, Estimated GFR 61, Est GFR ( Amer) 73 D, Glucose 120 H, Calcium 8.8, Magnesium 1.9, Total Bilirubin 0.3, AST 36, ALT 42, Alkaline Phosphatase 76, Total Creatine Kinase 609 H*, Total Protein 6.3, Albumin 3.6 D, Globulin 2.7, Albumin/Globulin Ratio 1.3 I & O for Last 24 hours: Intake & Output 03/07/24 03/08/24 03/09/24 03/10/24 23:59 23:59 23:59 23:59 Intake Total 2955 / 2955 Output Total 0 / 0 730 / 730 Balance 0 / 0 2225 / 2225 Weight 123.559 kg 126.609 kg 126.607 kg Constitutional Constitutional: no acute distress and obese *Routine HEENT Exam Head: Present normocephalic Eye: Present EOMI and PERRL ENT: Present mucous membranes moist *Routine Neck Exam Neck: Present supple; Absent lymphadenopathy *Routine Respiratory Exam Respiratory: Present CTA bilaterally; Absent rhonchi, wheezes or crackles *Routine Cardiovascular Exam Cardiovascular: Present RRR *Routine Abdominal Exam Abdominal: Present soft and normoactive bowel sounds; Absent tenderness *Routine Extremities Exam Extremities: Absent cyanosis, clubbing or edema Comments: No tenderness *Routine Skin Exam Skin: Present warm; Absent rash *Routine Neurological Exam Neurological: Present alert, oriented X3 and moving all extremities; Absent altered mental status Results Data Completed and Pending Labs on day of discharge: Labs from last 24 hours 03/10/24 03/09/24 05:25 17:50 WBC 8.0 D RBC 4.37 L Hgb 13.9 L Hct 42.1 MCV 96.5 H MCH 31.9 H MCHC 33.1 RDW 13.9 Plt Count 228 MPV 9.7 Neut % (Auto) 51.6 Lymph % (Auto) 39.0 [place] % (Auto) 6.8 Eos % (Auto) 1.8 Baso % (Auto) 0.8 Neut # (Auto) 4.1 Lymph # (Auto) 3.1 [place] # (Auto) 0.5 Eos # (Auto) 0.1 Baso # (Auto) 0.1 Sodium 137 137 Potassium 4.3 3.7 Chloride 110 H 104 Carbon Dioxide 25 29 Anion Gap 6.3 7.7 BUN 23 H 29 H Creatinine 1.30 H D 1.90 H D Estimated Creat Clear 133 91 Estimated GFR 61 39 L Est GFR ( Amer) 73 D 47 L D Glucose 120 H 150 H D Calcium 8.8 9.0 Magnesium 1.9 Total Bilirubin 0.3 AST 36 ALT 42 Alkaline Phosphatase 76 Total Creatine Kinase 609 H* Total Protein 6.3 Albumin 3.6 D Globulin 2.7 Albumin/Globulin Ratio 1.3 DS: Diagnosis Discharge Diagnosis (1) Acute renal failure due to rhabdomyolysis: Status: Acute Code(s): N17.9 - Acute kidney failure, unspecified; M62.82 - Rhabdomyolysis (2) Acute dehydration: Status: Acute Code(s): E86.0 - Dehydration (3) Heat exhaustion: Status: Acute Code(s): T67.5XXA - Heat exhaustion, unspecified, initial encounter Qualifiers: Encounter type: initial encounter Qualified Code(s): T67.5XXA - Heat exhaustion, unspecified, initial encounter (4) Current smoker: Status: Acute Code(s): F17.200 - Nicotine dependence, unspecified, uncomplicated (5) Obesity: Status: Acute Code(s): E66.9 - Obesity, unspecified Qualifiers: Body mass index: BMI 36.0-36.9 Obesity classification: adult class 2 (BMI 35 - 39.9) Obesity type: unspecified obesity type Serious obesity comorbidity presence: unspecified whether serious comorbidity present Qualified Code(s): E66.9 - Obesity, unspecified; Z68.36 - Body mass index [BMI] 36.0-36.9, adult Meds Home Medications and Allergies Home Medications Medication Instructions Recorded Confirmed Type No Known Home Medications 03/09/24 03/09/24 History New Prescriptions to Start Prescriptions: Allergies Allergy/AdvReac Type Severity Reaction Status Date / Time codeine Allergy Unknown Verified 03/09/24 08:54 allergy reaction Penicillins Allergy Unknown Verified 03/09/24 08:54 allergy reaction mustard AdvReac Nausea Verified 03/09/24 16:18 Discharge Plan Disposition Patient Disposition: Home, Self-Care Condition: Good Discharge Order Discharge Orders: Discharge Order (Routine); Ordered 03/10/24 Ordered By: Siva Browne Follow up Plan Follow up with: Sue Sheikh MD [Primary Care Provider] - Enter time for follow up Matt Munoz MD [Staff Physician] - Enter time for follow up (office will call patient with information about appointment ) Prescriptions/Medication Reconciliation: Continued No Known Home Medications Problem Reconciliation Problems Reviewed?: Yes Patient Discharge Instructions ACTIVITY: Continue current activity DIET: continue same diet Patient Instructions: DI for Heat Exhaustion and Heat Stroke, DI for Dehydration -- Adult, DI for Rhabdomyolysis, DI for Acute Kidney Injury Providers Primary Care Provider: Provider,Referral Admit Provider: Siva Browne Attending Provider: Siva Browne
[2024-03-10 07:52] VITALS: BP 105/61; PULSE 63; RESP 18; TEMP 36.7; O2SAT 93
[2024-03-10] MEDS: POTASSIUM CHLORIDE 20MEQ TAB 40 MEQ PO (08:10)
[2024-03-10] MEDS: METHOCARBAMOL 500MG TABLET 1000 MG PO (08:10)
== END 2024-03-10 09:44 | disposition home or self-care (01) | DRG 683 ==
LOC: ER 18:32 → 2ND 18:43
PROVIDERS: Admitting Provider Internal Medicine Adolescent Medicine; Emergency Provider Emergency Medicine; Visit Provider Internal Medicine Adolescent Medicine
DX: N17.9 Acute kidney failure, unspecified (principal); M62.82 Rhabdomyolysis; E86.0 Dehydration; X30.XXXA Exposure to excessive natural heat, initial encounter; F17.200 Nicotine dependence, unspecified, uncomplicated; J44.9 Chronic obstructive pulmonary disease, unspecified; Z71.6 Tobacco abuse counseling; E66.9 Obesity, unspecified; Z68.37 Body mass index [BMI] 37.0-37.9, adult
CPT/HCPCS: 36415; 80048; 80053; 82550; 83735; 85025; 99291; J1650; J1885; J7120

== ENCOUNTER 2025-02-28 15:35 | Observation (INO) | payer SELFPAY ==
[2025-02-28] VITALS (7 sets, daily range): BP systolic 129–141; BP diastolic 86–98; PULSE 82–120; RESP 18–20; TEMP 36.6–36.9; O2SAT 94–98; BMI 40.8
--- NOTE | 2025-02-28 15:46 | ED_ITS ---
<Statement entered by Zainab Bell DO - 02/28/25 23:24> I was consulted by the JAILYN, and we discussed the complexity of the problems being addressed. I approved the treatment and management plan for this patient's care in the emergency department, thus performing a substantive portion of the medical decision making. Zainab Bell DO Discharge Plan Disposition Patient Disposition: Admitted Condition: Fair Prescriptions Prescriptions: No Action No Known Home Medications Referrals Follow up/Referrals: Provider,Referral, MD [Primary Care Provider, Medical] - See instructions Clinical Impressions Clinical Impression: MUSA (acute kidney injury), Acute dehydration, Metabolic acidosis Heat exhaustion Qualifiers: Encounter type: initial encounter Qualified Code(s): T67.5XXA - Heat exhaustion, unspecified, initial encounter Print Language Print Language: Fijian Discharge ED Provider: Zainab Bell General Adult HPI <HILLARY Carnes - Last Filed: 02/28/25 19:22> General Chief complaint: Weakness Stated complaint: over heated Time Seen by Provider: 02/28/25 15:46 History of Present Illness HPI narrative: Patient presents for evaluation of heat exposure. 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 He states he has gotten very weak shaky and started having muscle cramps. This has happened to him before most recently as last summer. Patient does not currently have a primary care physician as he does not currently have insurance. Patient states he has been drinking water and Gatorade along with sweet tea. He denies any chest pain shortness of breath fever chills hemoptysis hematochezia melena vomiting or diarrhea but does endorse some nausea Related Data Home Medications ?Medication ?Instructions ?Recorded ?Confirmed No Known Home Medications 03/09/24 07/0 12/28 Allergies Allergy/AdvReac Type Severity Reaction Status Date / Time codeine Allergy Unknown Verified 03/09/24 08:54 allergy reaction Penicillins Allergy Unknown Verified 03/09/24 08:54 allergy reaction mustard AdvReac Nausea Verified 03/09/24 16:18 PFSH <HILLARY Carnes - Last Filed: 02/28/25 19:22> PFS Disclaimer: The information contained in this section may have been updated after the patient was seen, as this information can be updated by other users. Surgical History (Updated 03/08/24 @ 19:57 by Brigitte Payne RN) H/O tooth extraction Social History (Updated 03/08/24 @ 19:57 by Brigitte Payne RN) Smoking Status: Current every day smoker alcohol intake: never current occupational status: employed Travel in the last 8 weeks?: None Have you lived/traveled outside [place] in past 30 days?: No Contact w/someone who lives/traveled outside US past 30 days?: No Exposure to someone with infectious disease in past 14 days?: No Do you have a fever (greater than 100.4 F or 38 C)?: No Have you tested positive for COVID-19?: No Exposed to someone with COVID-19 in past 14 days?: No Do you have a sore throat?: No Do you have a cough?: No Do you have any weakness?: No Do you have any diarrhea?: No Are you experiencing any unusual bleeding?: No Do you have any muscle aches/pain?: No Do you have any abdominal pain?: No Are you experiencing loss of taste or smell?: No Other Medical History Have you received the Flu Vaccine for this season: No Have you received the Pneumonia Vaccine: No <HILLARY Carnes - Last Filed: 02/28/25 19:22> ROS Obtained: Yes Systems reviewed as appropriate & no additional complaints except as documented Physical Exam <HILLARY Carnes - Last Filed: 02/28/25 19:22> General General appearance: alert and in no apparent distress Respiratory Respiratory exam: Present normal lung sounds bilaterally Cardiovascular Cardiovascular exam: Present tachycardia Neurological Exam Neurological exam: Present alert and oriented X3 Medical Decision Making <HILLARY Carnes - Last Filed: 02/28/25 19:22> Medical Records Medical records reviewed: Yes I reviewed the patient's medical records. Screening: Per USPSTF and CDC recommendations, given the prevalence of disease in our region, it is our hospital?s policy to screen for HIV and viral Hepatitis for all patients aged 18 and over and those with ongoing risk factors. Sinan Inquiry Pt receiving controlled substance: No Vital Signs: 02/28/25 15:43 02/28/25 17:02 02/28/25 17:30 Temperature 98 F Temperature Source Oral Pulse Rate 89 82 Pulse Rate [Right Radial] 120 H Respiratory Rate 20 18 18 Blood Pressure 134/88 129/88 Blood Pressure [Right Arm] 137/98 H Blood Pressure Mean 98 95 Blood Pressure Mean [Right Arm] 111 Blood Pressure Source [Right Arm] Automatic Cuff Blood Pressure Position [Right Arm] Sitting 02 Sat by Pulse Oximetry 96 97 94 L Oxygen Delivery Method Room Air 02/28/25 18:00 Temperature Temperature Source Pulse Rate 84 Pulse Rate [Right Radial] Respiratory Rate 18 Blood Pressure 141/86 H Blood Pressure [Right Arm] Blood Pressure Mean 104 Blood Pressure Mean [Right Arm] Blood Pressure Source [Right Arm] Blood Pressure Position [Right Arm] 02 Sat by Pulse Oximetry 98 Oxygen Delivery Method Lab Data Lab results reviewed: Yes I reviewed the patient's lab results. Lab Results 02/28/25 15:51: WBC 17.0 H, RBC 6.09, Hgb 18.7 H, Hct 54.5 H, MCV 89.5, MCH 30.7, MCHC 34.3, RDW 12.8, Plt Count 374, MPV 11.1 H, Neut % (Auto) 72.5, Lymph % (Auto) 17.7, [place] % (Auto) 8.3, Eos % (Auto) 0.6, Baso % (Auto) 0.6, Neut # (Auto) 12.3 H, Lymph # (Auto) 3.0, [place] # (Auto) 1.4 H, Eos # (Auto) 0.1, Baso # (Auto) 0.1, PT 11.5, INR 1.04, Sodium 136, Potassium 3.7, Chloride 94 L, Carbon Dioxide 19 L, Anion Gap 26.7 H, BUN 32 H, Creatinine 3.70 H, Estimated Creat Clear 47, Estimated GFR 18 L*, Est GFR ( Amer) 22 L, Glucose 197 H, C alcium 11.7 H, Magnesium 2.2, Total Bilirubin 1.2, AST 43, ALT 58, Alkaline Phosphatase 105, Total Creatine Kinase 432 H, Troponin I 0.02, Total Protein > 11.0 H D, Albumin 5.6 H, Globulin 5.4 H, Albumin/Globulin Ratio 1.0 L, HCV Ab CHEN w/Rflx PCR Qn Negative, HIV Ag/Ab Combo Qual Negative 02/28/25 15:53: VBG pH 7.31, VBG pCO2 37.5, VBG pO2 40.3 H, VBG HCO3 18.2 L, VBG Total CO2 19.4 L, VBG O2 Saturation 73.1 H, VBG Base Excess -8.1 L, VBG Lactic Acid 4.1 H 02/28/25 17:15: Urine Color Yellow, Urine Appearance Clear, Urine pH 5.5, Ur Specific [place] 1.029, Urine Protein 3+ A, Urine Glucose (UA) Negative, Urine Ketones 1+, Urine Blood Trace-i, Urine Nitrate Negative, Urine Bilirubin 1+ A, Urine Urobilinogen 2.0, Ur Leukocyte Esterase Negative, Urine RBC 3-5, Urine WBC 5-10, Ur Squamous Epith Cells 5-10, Uric Acid Crystals 3+, Amorphous Sediment 3+, Urine Bacteria 4+ 02/28/25 18:21: Sodium 134 L, Potassium 4.3, Chloride 94 L, Carbon Dioxide 26, A nion Gap 18.3 H, BUN 35 H, Creatinine 2.80 H D, Estimated Creat Clear 62, E stimated GFR 25 L, Est GFR ( Amer) 30 L D, Glucose 124 H D, Calcium 10.9 H, Total Bilirubin 0.9, AST 36, ALT 45, Alkaline Phosphatase 94, Total Creatine Kinase 341 H, Total Protein 8.3 H, Albumin 5.1 H, Globulin 3.2, Albumin/Globulin Ratio 1.6 02/28/25 15:51 02/28/25 18:21 Orders (Tests/Meds): ED MEDICATIONS Generic Name Dose Route Start Last Admin Trade Name Freq PRN Reason Stop Dose Admin Ceftriaxone Sodium 1 gm/ 50 mls @ 100 mls/hr 02/28/25 18:00 02/28/25 18:38 Sodium Chloride IV 03/10/25 17:59 100 mls/hr Q24H FABIANA Administration Discontinued Medications Generic Name Dose Route Start Last Admin Trade Name Freq PRN Reason Stop Dose Admin Acetaminophen 1,000 mg 02/28/25 15:47 02/28/25 15:56 Acetaminophen 500mg Tab PO 02/28/25 15:48 1,000 mg ONCE ONE Administration Lactated Ringer's 1,000 mls @ 999 mls/hr 02/28/25 15:47 02/28/25 15:52 Lactated Ringer's 1000 Ml Bag IV 02/28/25 16:47 999 mls/hr .Q1H1M ONE Administration Lactated Ringer's 2,190 mls @ 1,095 mls/hr 02/28/25 17:01 02/28/25 17:13 Lactated Ringer's 1000 Ml Bag 30 ml/kg infuse over 2 hr (2190 ml) 02/28/25 19:00 1,095 mls/hr IV Administration .Q2H ONE Sodium Chloride 1,000 mls @ 999 mls/hr 02/28/25 18:01 02/28/25 18:39 Sod Chlor 0.9% 1000ml Bag IV 02/28/25 19:01 999 mls/hr .Q1H1M ONE Administration Methocarbamol 500 mg 02/28/25 16:05 02/28/25 16:14 Methocarbamol 500mg Tablet PO 02/28/25 16:06 500 mg ONCE ONE Administration ORDERS Category Date Time Status CBC w/Auto Diff [Complete Blood Count Auto Diff] Stat Lab 02/28/25 15:51 Completed CK [Creatine Kinase] Stat Lab 02/28/25 15:51 Completed CK [Creatine Kinase] Stat Lab 02/28/25 18:21 Completed CMP [Comprehensive Metabolic Panel] Stat Lab 02/28/25 15:51 Completed CMP [Comprehensive Metabolic Panel] Stat Lab 02/28/25 18:21 Completed HIV Combo Stat Lab 02/28/25 15:51 Completed Hemoglobin A1C Stat Lab 02/28/25 15:51 Received Hepatitis C Ab Qual. W/ RFX Stat Lab 02/28/25 15:51 Completed Magnesium Stat Lab 02/28/25 15:51 Completed Prothrombin Time INR Stat Lab 02/28/25 15:51 Completed Trop I [Troponin I] Stat Lab 02/28/25 15:51 Completed Troponin I Q3H Lab 02/28/25 18:21 Received Troponin I Q3H Lab 02/28/25 22:00 Ordered UA [Urinalysis and Microscopic] Stat Lab 02/28/25 17:15 Completed Blood Culture Stat Micro 02/28/25 17:08 Received Urine Culture Stat Micro 02/28/25 17:15 Received VBG [Venous Blood Gas] Stat RT 02/28/25 15:53 Completed Medical Decision Narrative: In summary patient is a 44-year-old male who presents to the emergency department for evaluation of feeling overheated and muscle cramps. Patient is normotensive with a blood pressure 137/98 tachycardic at 120 with sinus tachycardia on the bedside monitor breathing 20 times minute satting at 96% on room air upon arrival, with a temperature of 98 orally. Physical exam reveals a diaphoretic but well-nourished well-developed 44-year-old gentleman who currently is in no acute distress. Breath sounds clinical bilaterally to the bases. Abdomen is obese but soft nontender no rebound no guarding no rigidity. Patient moves all 4 extremities to does not have any evidence of muscle spasms or palpable myalgias currently.. Differential diagnosis includes acute dehydration versus acute kidney injury versus electrolyte depletion versus heat exhaustion versus rhabdomyolysis etc. Initial workup will be conducted with hematologic labs twelve-lead EKG urinalysis. Initial interventions include 1 L crystalloid bolus followed by 30 mg/kg crystalloid infusion Tylenol and Robaxin. Initial workup reviewed by me shows patient's white count 17 hemoglobin hematocrit of 18.7 and 54.5 respectively with an absolute neutrophil count of 12.3, INR 1.04, VBG shows a pH of 7.31 pCO2 of 37.5 bicarb is 18.2 base excess is -8.1 VBG lactic acid 4.1, potassium is 3.7 chlorides 94 CO2 is 19 anion gap is 26.7 BUN is 32 creatinine is 3.7 GFR is 18 glucose 197 total calcium is 11.7 albumin is 5.6 and corrected calcium for hypoalbuminemia is 10.4, magnesium is 2.2 transaminases are normal CK is 432 initial troponin is 0.02 total serum protein is greater than 11.0. Given his heat exposure acute dehydration and acute kidney injury I had interactive discussion with hospital medicine regarding patient presentation [facility] and management. Dr. Browne is concerned that patient may have underlying malignancy given that his serum protein is greater than 11. He is recommended transfer to a higher level of care for nephrology evaluation. We have elected to repeat labs after initial bolus is completed to ensure that this is an accurate reflection of his volume status especially since I feel the patient is volume contracted due to dehydration. Upon repeat evaluation patient's labs after 3 L of fluid shows sodium of 134 chloride of 94 CO2 of 26 gap is come down to 18.3 BUN is 35 creatinine is improved to 2.8 GFR is come up to 25 glucose is 124 calcium is 10.9 CK is 341 total protein is now 8.3 albumin is 5.1 urinalysis shows 3+ of protein 1+ of ketone trace blood negative nitrite leukocyte esterase negative microscopic exam shows 3-5 red cells 5-10 white cells 5-10 epithelial cells 3+ uric acid and 4+ bacteria. I have initiated the patient on Rocephin. Had a repeat discussion with Dr. Browne regarding patient's volume status and laboratory results and outpatient management and he will be admitted here for further evaluation and care. <Zainab Bell, DO - Last Filed: 02/28/25 17:42> Vital Signs: 02/28/25 15:43 02/28/25 17:02 02/28/25 17:30 Temperature 98 F Temperature Source Oral Pulse Rate 89 82 Pulse Rate [Right Radial] 120 H Respiratory Rate 20 18 18 Blood Pressure 134/88 129/88 Blood Pressure [Right Arm] 137/98 H Blood Pressure Mean 98 95 Blood Pressure Mean [Right Arm] 111 Blood Pressure Source [Right Arm] Automatic Cuff Blood Pressure Position [Right Arm] Sitting 02 Sat by Pulse Oximetry 96 97 94 L Oxygen Delivery Method Room Air 02/28/25 18:00 Temperature Temperature Source Pulse Rate 84 Pulse Rate [Right Radial] Respiratory Rate 18 Blood Pressure 141/86 H Blood Pressure [Right Arm] Blood Pressure Mean 104 Blood Pressure Mean [Right Arm] Blood Pressure Source [Right Arm] Blood Pressure Position [Right Arm] 02 Sat by Pulse Oximetry 98 Oxygen Delivery Method Lab Data Lab Results 02/28/25 15:51: WBC 17.0 H, RBC 6.09, Hgb 18.7 H, Hct 54.5 H, MCV 89.5, MCH 30.7, MCHC 34.3, RDW 12.8, Plt Count 374, MPV 11.1 H, Neut % (Auto) 72.5, Lymph % (Auto) 17.7, [place] % (Auto) 8.3, Eos % (Auto) 0.6, Baso % (Auto) 0.6, Neut # (Auto) 12.3 H, Lymph # (Auto) 3.0, [place] # (Auto) 1.4 H, Eos # (Auto) 0.1, Baso # (Auto) 0.1, PT 11.5, INR 1.04, Sodium 136, Potassium 3.7, Chloride 94 L, Carbon Dioxide 19 L, Anion Gap 26.7 H, BUN 32 H, Creatinine 3.70 H, Estimated Creat Clear 47, Estimated GFR 18 L*, Est GFR ( Amer) 22 L, Glucose 197 H, C alcium 11.7 H, Magnesium 2.2, Total Bilirubin 1.2, AST 43, ALT 58, Alkaline Phosphatase 105, Total Creatine Kinase 432 H, Troponin I 0.02, Total Protein > 11.0 H D, Albumin 5.6 H, Globulin 5.4 H, Albumin/Globulin Ratio 1.0 L, HCV Ab CHEN w/Rflx PCR Qn Negative, HIV Ag/Ab Combo Qual Negative 02/28/25 15:53: VBG pH 7.31, VBG pCO2 37.5, VBG pO2 40.3 H, VBG HCO3 18.2 L, VBG Total CO2 19.4 L, VBG O2 Saturation 73.1 H, VBG Base Excess -8.1 L, VBG Lactic Acid 4.1 H 02/28/25 17:15: Urine Color Yellow, Urine Appearance Clear, Urine pH 5.5, Ur Specific [place] 1.029, Urine Protein 3+ A, Urine Glucose (UA) Negative, Urine Ketones 1+, Urine Blood Trace-i, Urine Nitrate Negative, Urine Bilirubin 1+ A, Urine Urobilinogen 2.0, Ur Leukocyte Esterase Negative, Urine RBC 3-5, Urine WBC 5-10, Ur Squamous Epith Cells 5-10, Uric Acid Crystals 3+, Amorphous Sediment 3+, Urine Bacteria 4+ 02/28/25 18:21: Sodium 134 L, Potassium 4.3, Chloride 94 L, Carbon Dioxide 26, A nion Gap 18.3 H, BUN 35 H, Creatinine 2.80 H D, Estimated Creat Clear 62, E stimated GFR 25 L, Est GFR ( Amer) 30 L D, Glucose 124 H D, Calcium 10.9 H, Total Bilirubin 0.9, AST 36, ALT 45, Alkaline Phosphatase 94, Total Creatine Kinase 341 H, Total Protein 8.3 H, Albumin 5.1 H, Globulin 3.2, Albumin/Globulin Ratio 1.6 Orders (Tests/Meds): ED MEDICATIONS Generic Name Dose Route Start Last Admin Trade Name Freq PRN Reason Stop Dose Admin Ceftriaxone Sodium 1 gm/ 50 mls @ 100 mls/hr 02/28/25 18:00 02/28/25 18:38 Sodium Chloride IV 03/10/25 17:59 100 mls/hr Q24H FABIANA Administration Discontinued Medications Generic Name Dose Route Start Last Admin Trade Name Namita PRN Reason Stop Dose Admin Acetaminophen 1,000 mg 02/28/25 15:47 02/28/25 15:56 Acetaminophen 500mg Tab PO 02/28/25 15:48 1,000 mg ONCE ONE Administration Lactated Ringer's 1,000 mls @ 999 mls/hr 02/28/25 15:47 02/28/25 15:52 Lactated Ringer's 1000 Ml Bag IV 02/28/25 16:47 999 mls/hr .Q1H1M ONE Administration Lactated Ringer's 2,190 mls @ 1,095 mls/hr 02/28/25 17:01 02/28/25 17:13 Lactated Ringer's 1000 Ml Bag 30 ml/kg infuse over 2 hr (2190 ml) 02/28/25 19:00 1,095 mls/hr IV Administration .Q2H ONE Sodium Chloride 1,000 mls @ 999 mls/hr 02/28/25 18:01 02/28/25 18:39 Sod Chlor 0.9% 1000ml Bag IV 02/28/25 19:01 999 mls/hr .Q1H1M ONE Administration Methocarbamol 500 mg 02/28/25 16:05 02/28/25 16:14 Methocarbamol 500mg Tablet PO 02/28/25 16:06 500 mg ONCE ONE Administration ORDERS Category Date Time Status CBC w/Auto Diff [Complete Blood Count Auto Diff] Stat Lab 02/28/25 15:51 Completed CK [Creatine Kinase] Stat Lab 02/28/25 15:51 Completed CK [Creatine Kinase] Stat Lab 02/28/25 18:21 Completed CMP [Comprehensive Metabolic Panel] Stat Lab 02/28/25 15:51 Completed CMP [Comprehensive Metabolic Panel] Stat Lab 02/28/25 18:21 Completed HIV Combo Stat Lab 02/28/25 15:51 Completed Hemoglobin A1C Stat Lab 02/28/25 15:51 Received Hepatitis C Ab Qual. W/ RFX Stat Lab 02/28/25 15:51 Completed Magnesium Stat Lab 02/28/25 15:51 Completed Prothrombin Time INR Stat Lab 02/28/25 15:51 Completed Trop I [Troponin I] Stat Lab 02/28/25 15:51 Completed Troponin I Q3H Lab 02/28/25 18:21 Received Troponin I Q3H Lab 02/28/25 22:00 Ordered UA [Urinalysis and Microscopic] Stat Lab 02/28/25 17:15 Completed Blood Culture Stat Micro 02/28/25 17:08 Received Urine Culture Stat Micro 02/28/25 17:15 Received VBG [Venous Blood Gas] Stat RT 02/28/25 15:53 Completed ECG Data Tracing #1: I reviewed this ECG and interpreted as documented below: Sinus rhythm with a ventricular rate of 93 bpm. Some motion artifact. No acute ST changes concerning for ischemia. Incomplete right bundle branch block. ECG initial impression date: 02/28/25 ECG initial impression time: 17:00 Critical Care <HILLARY Carnes - Last Filed: 02/28/25 19:22> Critical Care Time Critical Care Time: Yes Attestation: On 02/28/25, the high probability of a clinically significant, sudden or life threatening deterioration of the following system(s) required my full and direct attention, intervention and personal management. The time I documented below is in addition to time spent performing reported procedures but includes the following listed in this critical care notation. Total Time Total Critical Care Time: 60
[2025-02-28] MEDS: LACTATED RINGERS 1000ML 1,000 ML 999 ML IV (15:52)
[2025-02-28] MEDS: ACETAMINOPHEN 500MG TAB 1000 MG PO (15:56)
[2025-02-28 16:01] LABS: Basophils # 0.1 K/mm3 (0-0.2); Basophils % 0.6 % (0.1-2.0); Eosinophils # 0.1 Kmm3 (0.0-0.4); Eosinophils % 0.6 % (0.1-12.0); Hematocrit 54.5 % (42.0-52.0); Immature Granulocytes # 0.05 10^3uL; Immature Granulocytes % 0.3 %; Lymphocytes % 17.7 % (10-50); Mean Corpuscular HGB Conc 34.3 g/dL (31.8-35.4); Mean Corpuscular Hemoglobin 30.7 pg (27.0-31.2); Mean Corpuscular Volume 89.5 fl (80-94); Mean Platelet Volume 11.1 fl (7.4-10.4); Monocytes # 1.4 K/mm3 (0.1-1.0); Monocytes % 8.3 % (1.7-9.3); Neutrophils # 12.3 K/mm3 (1.8-7.8); Neutrophils % 72.5 % (37.0-80.0); Nucleated Red Blood Cells # 0 10^3/uL; Nucleated Red Blood Cells % 0 %; Platelet Count 374 K/mm3 (142-424); Red Blood Count 6.09 M/mm3 (4.60-6.20); Red Cell Distribution Width 12.8 % (11.5-17.5); Red Cell Distribution Width-SD 41.8 fL
[2025-02-28 16:05] LABS: VBG Base Excess -8.1 mmol/L (-2.4-2.3); VBG HCO3 18.2 mmol/L (23-30); VBG Oxygen Saturation 73.1 % (50-70); VBG PCO2 37.5 mmol/L (35-51); VBG PH 7.31 mmol/L (7.31-7.41); VBG PO2 40.3 mmol/L (28-40); VBG Total CO2 19.4 mmol/L (23-27)
[2025-02-28 16:07] LABS: Lactate Venous 4.1 mmol/L (0.4-2.0)
[2025-02-28] MEDS: METHOCARBAMOL 500MG TABLET 500 MG PO (16:14)
[2025-02-28 16:17] LABS: Alanine Aminotransferase 58 U/L (12-78); Albumin Level 5.6 g/dl (3.5-5.0); Alkaline Phosphatase 105 U/L (38-126); Anion Gap 26.7 mEq/L (5-15); Aspartate Amino Transferase 43 U/L (17-59); Bilirubin,Total 1.2 mg/dl (0.2-1.3); Blood Urea Nitrogen 32 mg/dl (9-20); Calcium 11.7 mg/dl (8.4-10.2); Carbon Dioxide 19 mmol/L (22.0-30.0); Chloride 94 mmol/L (98-107); Creatine Kinase 432 U/L (55-170); Creatinine Clearance Estimated 47 mL/min (50-200); Estimated Glomerular Filt Rate 18 ml/min (>60); GFR (African American) 22 ML/MIN (>60); Glucose 197 mg/dl (74-100); Magnesium 2.2 mg/dl (1.6-2.3); Potassium 3.7 mmoL/L (3.5-5.1); Sodium 136 mmol/L (136-145)
[2025-02-28 16:21] LABS: Hemoglobin 18.7 g/dL (14.1-18.0)
[2025-02-28 16:26] LABS: INR 1.04 (0.9-1.1); Prothrombin Time 11.5 seconds (10.1-12.5)
[2025-02-28 16:29] LABS: Troponin I 0.02 ng/ml (0.00-0.034)
[2025-02-28 16:42] LABS: Globulin 5.4 g/dL (1.3-3.2); Total Protein,Serum > 11.0 g/dl (6.3-8.2)
--- NOTE | 2025-02-28 16:59 | ECG_ITS ---
APPROVED REPORT Exam: Resting ECG HR:93 bpm ECG Measurements Heart Rate 93 AXES MT 116 P 27 QRSd 106 QRS 49 QT 339 T 28 QTc 390 Conclusion SINUS RHYTHM WITH SHORT MT INTERVAL INDETERMINATE AXIS INCOMPLETE RIGHT BUNDLE BRANCH BLOCK [90+ ms QRS DURATION, TERMINAL R IN V1/V2, 40+ ms S IN I/aVL/V4/V5/V6] BORDERLINE ECG UNCONFIRMED REPORT Electronically signed by : TENA MAHMOOD, 03/01/2025 06:14:35
[2025-02-28 17:05] LABS: HIV Combo NEGATIVE (Negative)
[2025-02-28] MEDS: LACTATED RINGERS 1000ML 2,190 ML 1095 ML IV (17:13)
[2025-02-28 17:14] LABS: Hepatitis C Ab Qual. W/ RFX NEGATIVE (Negative)
[2025-02-28 17:23] LABS: Microscopic, Urine URINE MICROSCOPIC (MICROSCOPIC)
[2025-02-28 17:26] LABS: Appearance,Urine CLEAR (Clear); Blood, Urine TRACE-I (Negative); Color,Urine YELLOW (Yellow); Glucose,Urine (UA) Negative (Negative); Ketones,Urine 1+ (Negative); Leukocyte Esterase,Urine Negative (Negative); Nitrate,Urine Negative (Negative); PH,Urine 5.5 (5.0-8.5); Protein,Urine 3+ (Negative)
[2025-02-28 17:36] LABS: Bilirubin,Urine 1+ (Negative)
[2025-02-28 17:44] LABS: Specific Gravity, Urine 1.029 (1.005-1.030)
[2025-02-28 17:58] LABS: Amorphous Sediment,Urine 3+ /lpf; Bacteria,Urine 4+ /lpf; Uric Acid Crystals,Urine 3+ /lpf
[2025-02-28] MEDS: CEFTRIAXONE 1 GM 1 GM in 0.9 % SODIUM CHLORIDE 50 ML IV (18:38)
[2025-02-28] MEDS: 0.9 % SODIUM CHLORIDE 1000ML 1,000 ML 999 ML IV (18:39)
[2025-02-28 19:07] LABS: Alanine Aminotransferase 45 U/L (12-78); Albumin Level 5.1 g/dl (3.5-5.0); Albumin/Globulin Ratio 1.6 (1.1-1.8); Alkaline Phosphatase 94 U/L (38-126); Anion Gap 18.3 mEq/L (5-15); Aspartate Amino Transferase 36 U/L (17-59); Bilirubin,Total 0.9 mg/dl (0.2-1.3); Blood Urea Nitrogen 35 mg/dl (9-20); Calcium 10.9 mg/dl (8.4-10.2); Carbon Dioxide 26 mmol/L (22.0-30.0); Chloride 94 mmol/L (98-107); Creatine Kinase 341 U/L (55-170); Creatinine Clearance Estimated 62 mL/min (50-200); Estimated Glomerular Filt Rate 25 ml/min (>60); GFR (African American) 30 ML/MIN (>60); Globulin 3.2 g/dL (1.3-3.2); Glucose 124 mg/dl (74-100); Potassium 4.3 mmoL/L (3.5-5.1); Sodium 134 mmol/L (136-145); Total Protein,Serum 8.3 g/dl (6.3-8.2)
--- NOTE | 2025-02-28 19:34 | PC.NURSE ---
Attempting to call report at this time with no answer.
--- NOTE | 2025-02-28 19:50 | PC.NURSE ---
Report called to Concepc[facility] PETTY Pt transported to inpatient unit via wheelchair
[2025-02-28 19:51] LABS: Troponin I < 0.01 ng/ml (0.00-0.034)
[2025-02-28 20:06] LABS: Reflex Lactic Add Lactic Reflex
--- NOTE | 2025-02-28 20:09 | PC.NURSE ---
Patient arrived to floor via wheelchair from ED at 20:02.
[2025-02-28] MEDS: HEPARIN SODIUM 5,000 UNIT/ML VIAL 5000 UNIT SUBCUT (20:27)
[2025-02-28] MEDS: 0.9 % SODIUM CHLORIDE 1000ML 1,000 ML 125 ML IV (20:27)
--- NOTE | 2025-02-28 20:44 | P.HP_ITS ---
<Statement entered by Siva Browne MD - 03/01/25 08:37> Rounded on patient after nurse practitioner. Personally examined and interviewed patient. Agree with exam findings and care plan as documented. History of Present Illness *Admission Date: 02/28/25 *Reason for visit:: Muscle cramps *History of present illness: Mr. Kwan is a 44-year-old male who presents to the ER with complaints of muscle cramps. Patient has a past medical history of acute kidney injury, heat exhaustion, obesity, and tobacco use. Patient states onset of muscle cramps started today. He states this has happened 3 times in the past. Reported drinking water, Gatorade, and tea today. He denies muscle spasms at this time. He denies fever/chills, cough, dyspnea, chest pain, nausea, emesis, diarrhea, abdominal pain, lightheadedness, dizziness, or syncope. [facility] Disclaimer: The information contained in this section may have been updated after the patient was seen, as this information can be updated by other users. Surgical History (Updated 03/08/24 @ 19:57 by Brigitte Payne RN) H/O tooth extraction Social History (Updated 03/08/24 @ 19:57 by Brigitte Payne RN) Smoking Status: Current every day smoker alcohol intake: never current occupational status: employed Travel in the last 8 weeks?: None Have you lived/traveled outside [place] in past 30 days?: No Contact w/someone who lives/traveled outside US past 30 days?: No Exposure to someone with infectious disease in past 14 days?: No Do you have a fever (greater than 100.4 F or 38 C)?: No Have you tested positive for COVID-19?: No Exposed to someone with COVID-19 in past 14 days?: No Do you have a sore throat?: No Do you have a cough?: No Do you have any weakness?: No Do you have any diarrhea?: No Are you experiencing any unusual bleeding?: No Do you have any muscle aches/pain?: No Do you have any abdominal pain?: No Are you experiencing loss of taste or smell?: No Other Medical History Have you received the Flu Vaccine for this season: No Have you received the Pneumonia Vaccine: No Review of Systems Constitutional Constitutional: Denies chills, Denies fever(s) and Denies headache(s) ENT Ears, Nose, Mouth, and Throat: Denies dizziness, Denies headache(s) and Denies nasal congestion *Cardiovascular Cardiovascular: Denies chest pain, Denies dyspnea, Denies lightheadedness and Denies syncope *Respiratory Respiratory: Denies cough and Denies dyspnea *Gastrointestinal Gastrointestinal: Denies abdominal pain, Denies constipation, Denies diarrhea and Denies vomiting *Genitourinary Genitourinary: Reports as per HPI *Musculoskeletal Musculoskeletal: Reports muscle cramps *Neurologic Neurologic: Denies dizziness, Denies headache(s) and Denies syncope Meds Home Medications and Allergies Home Medications ?Medication ?Instructions ?Recorded ?Confirmed ?Type No Known Home Medications 03/09/2402/05 History New Prescriptions to Start Prescriptions: Allergies Allergy/AdvReac Type Severity Reaction Status Date / Time codeine Allergy Unknown Verified 03/09/24 08:54 allergy reaction Penicillins Allergy Unknown Verified 03/09/24 08:54 allergy reaction mustard AdvReac Nausea Verified 03/09/24 16:18 Exam Data for Last 24 hours Vital signs and Labs for Last 24 Hours: Temp Pulse Resp BP Pulse Ox O2 Del Method 98.5 F 82 18 129/88 98 Room Air 02/28/25 20:06 02/28/25 20:06 02/28/25 20:06 02/28/25 20:06 02/28/25 20:04 02/28/25 20:06 Laboratory Results - last 24 hr 02/28/25 15:51: WBC 17.0 H, RBC 6.09, Hgb 18.7 H, Hct 54.5 H, MCV 89.5, MCH 30.7, MCHC 34.3, RDW 12.8, Plt Count 374, MPV 11.1 H, Neut % (Auto) 72.5, Lymph % (Auto) 17.7, [place] % (Auto) 8.3, Eos % (Auto) 0.6, Baso % (Auto) 0.6, Neut # ( Auto) 12.3 H, Lymph # (Auto) 3.0, [place] # (Auto) 1.4 H, Eos # (Auto) 0.1, Baso # (Auto) 0.1, PT 11.5, INR 1.04, Sodium 136, Potassium 3.7, Chloride 94 L, Carbon Dioxide 19 L, Anion Gap 26.7 H, BUN 32 H, Creatinine 3.70 H, Estimated Creat Clear 47, Estimated GFR 18 L*, Est GFR ( Amer) 22 L, Glucose 197 H, Calcium 11.7 H, Magnesium 2.2, Total Bilirubin 1.2, AST 43, ALT 58, Alkaline Phosphatase 105, Total Creatine Kinase 432 H, Troponin I 0.02, Total Protein > 11.0 H D, Albumin 5.6 H, Globulin 5.4 H, Albumin/Globulin Ratio 1.0 L, HCV Ab CHEN w/Rflx PCR Qn Negative, HIV Ag/Ab Combo Qual Negative 02/28/25 15:53: VBG pH 7.31, VBG pCO2 37.5, VBG pO2 40.3 H, VBG HCO3 18.2 L, VBG Total CO2 19.4 L, VBG O2 Saturation 73.1 H, VBG Base Excess -8.1 L, VBG Lactic Acid 4.1 H 02/28/25 17:15: Urine Color Yellow, Urine Appearance Clear, Urine pH 5.5, Ur Specific [place] 1.029, Urine Protein 3+ A, Urine Glucose (UA) Negative, Urine Ketones 1+, Urine Blood Trace-i, Urine Nitrate Negative, Urine Bilirubin 1+ A, Urine Urobilinogen 2.0, Ur Leukocyte Esterase Negative, Urine RBC 3-5, Urine WBC 5-10, Ur Squamous Epith Cells 5-10, Uric Acid Crystals 3+, Amorphous Sediment 3+, Urine Bacteria 4+ 02/28/25 18:21: Sodium 134 L, Potassium 4.3, Chloride 94 L, Carbon Dioxide 26, Anion Gap 18.3 H, BUN 35 H, Creatinine 2.80 H D, Estimated Creat Clear 62, Estimated GFR 25 L, Est GFR ( Amer) 30 L D, Glucose 124 H D, Calcium 10.9 H, Total Bilirubin 0.9, AST 36, ALT 45, Alkaline Phosphatase 94, Total Creatine Kinase 341 H, Troponin I < 0.01, Total Protein 8.3 H, Albumin 5.1 H, Globulin 3.2, Albumin/Globulin Ratio 1.6 I & O for Last 24 hours: Intake & Output 02/25/25 02/26/25 02/27/25 02/28/25 23:59 23:59 23:59 23:59 Output Total 100 / 100 Balance -100 / -100 Weight 129.274 kg Constitutional Constitutional: no acute distress and obese *Routine HEENT Exam Head: Present normocephalic and atraumatic Eye: Present EOMI and PERRL ENT: Present mucous membranes moist and oropharynx clear *Routine Neck Exam Neck: Present supple and full ROM *Routine Respiratory Exam Respiratory: Present CTA bilaterally, normal respiratory effort, able to speak in complete sentences and symmetric chest movement *Routine Cardiovascular Exam Cardiovascular: Present RRR, Normal S1 and Normal S2 *Routine Abdominal Exam Abdominal: Present normoactive bowel sounds and obese; Absent tenderness *Routine Rectal Exam Rectal:: deferred *Routine Genitalia Exam Genitalia:: deferred *Routine Extremities Exam Extremities: Present full ROM, pulses intact and normal capillary refill; Absent edema *Routine Skin Exam Skin: Present intact and warm *Routine Neurological Exam Neurological: Present alert, oriented X3 and CN II-XII intact Assessment and Plan *Assessment and plan (1) MUSA (acute kidney injury): Status: Acute Category: Medical Code(s): N17.9 - Acute kidney failure, unspecified Plan: Normal saline 125 mL/hr Monitor BMP every a.m. Baseline creatinine within normal limits Monitor Is & Os Avoid nephrotoxic agents (2) Acute dehydration: Status: Acute Category: Medical Code(s): E86.0 - Dehydration Plan: Normal saline 125 mL/HR Regular diet, push p.o. fluids CK 341, monitor for worsening which would be concerning for rhabdomyolysis (3) Heat exhaustion: Status: Acute Qualifiers: Encounter type: initial encounter Qualified Code(s): T67.5XXA - Heat exhaustion, unspecified, initial encounter Category: Medical Code(s): T67.5XXA - Heat exhaustion, unspecified, initial encounter Plan: Patient is in a temperature controlled room IV fluids Encourage p.o. fluids (4) Leukocytosis: Status: Acute Category: Medical Code(s): D72.829 - Elevated white blood cell count, unspecified Plan: Patient received Rocephin 1 g in the ER Blood cultures are pending, follow results and add antibiotics if indicated Leukocytosis could be an inflammatory response and not necessarily infectious Patient is normotensive, afebrile, and not tachycardic (5) Elevated lactic acid level: Status: Acute Category: Medical Code(s): R79.89 - Other specified abnormal findings of blood chemistry Plan: IV fluids Encourage p.o. fluids Reflex pending (6) Muscle spasm: Status: Acute Category: Medical Code(s): M62.838 - Other muscle spasm Plan: Robaxin 1000 mg p.o. 4 times daily as needed for muscle spasms (7) Current smoker: Status: Acute Category: Social Hx Code(s): F17.200 - Nicotine dependence, unspecified, uncomplicated Plan: Offered nicotine patch but patient declined Encourage smoking cessation
[2025-02-28 20:46] LABS: Lactic Acid Follow Up (RFLX 1) 1.4 mmol/L (0.7-2.1)
--- NOTE | 2025-02-28 21:55 | PC.NURSE ---
patient is currently in shower at this time 2129
[2025-02-28 22:06] LABS: Hemoglobin A1C 7.4 % (4.0-6.0)
[2025-02-28 22:44] LABS: Troponin I < 0.01 ng/ml (0.00-0.034)
[2025-03-01] VITALS: BP 159/67; PULSE 76; RESP 19; TEMP 36.6; O2SAT 97
--- NOTE | 2025-03-01 02:42 | PC.NURSE ---
Pt AOx4. Admitted early in the shift for heat exhaustion. Pt denies dizziness, nausea, or pain. 20g LAC, receiving normal saline at 125 mL/hr. Significant other at bedside. Pt currently resting in bed with eyes closed. Respirations even and unlabored. Bed is low, locked, and call light is in reach.
[2025-03-01 04:00] VITALS: BP 121/55; PULSE 61; RESP 16; TEMP 36.6; O2SAT 93; BMI 39.9
--- NOTE | 2025-03-01 04:34 | PC.NURSE ---
Blue bags and trashes were taken out at this time 0434. Patient's call light is within reach and pt does not need anything
[2025-03-01] MEDS: 0.9 % SODIUM CHLORIDE 1000ML 1,000 ML 125 ML IV (04:35)
[2025-03-01 05:53] LABS: Basophils # 0.1 K/mm3 (0-0.2); Basophils % 0.4 % (0.1-2.0); Eosinophils # 0.2 Kmm3 (0.0-0.4); Eosinophils % 1.4 % (0.1-12.0); Hematocrit 43.5 % (42.0-52.0); Immature Granulocytes # 0.03 10^3uL; Immature Granulocytes % 0.3 %; Lymphocytes # 4.6 K/mm3 (0.7-4.5); Lymphocytes % 38.9 % (10-50); Mean Corpuscular HGB Conc 32.9 g/dL (31.8-35.4); Mean Corpuscular Hemoglobin 29.7 pg (27.0-31.2); Mean Corpuscular Volume 90.4 fl (80-94); Mean Platelet Volume 11.7 fl (7.4-10.4); Monocytes % 8.7 % (1.7-9.3); Neutrophils # 5.9 K/mm3 (1.8-7.8); Neutrophils % 50.3 % (37.0-80.0); Nucleated Red Blood Cells # 0 10^3/uL; Nucleated Red Blood Cells % 0 %; Platelet Count 250 K/mm3 (142-424); Red Blood Count 4.81 M/mm3 (4.60-6.20); Red Cell Distribution Width-SD 42.5 fL; White Blood Count 11.8 K/mm3 (4.8-10.8)
[2025-03-01 06:00] LABS: Hemoglobin 14.7 g/dL (14.1-18.0)
[2025-03-01 06:11] LABS: Chloride 101 mmol/L (98-107); Potassium 3.4 mmoL/L (3.5-5.1); Sodium 135 mmol/L (136-145)
[2025-03-01 06:14] LABS: Blood Urea Nitrogen 31 mg/dl (9-20); Creatinine Clearance Estimated 107 mL/min (50-200); Estimated Glomerular Filt Rate 47 ml/min (>60); GFR (African American) 57 ML/MIN (>60)
[2025-03-01 06:15] LABS: Anion Gap 11.4 mEq/L (5-15); Calcium 8.5 mg/dl (8.4-10.2); Carbon Dioxide 26 mmol/L (22.0-30.0); Glucose 128 mg/dl (74-100)
--- NOTE | 2025-03-01 06:33 | PC.NURSE ---
Ice filled and table is wiped. call light within reach, patient does not need anything at this time. [id number]
[2025-03-01 08:00] VITALS: BP 136/85; PULSE 71; RESP 16; TEMP 36.6; O2SAT 94
[2025-03-01] MEDS: HEPARIN SODIUM 5,000 UNIT/ML VIAL 5000 UNIT SUBCUT (08:34)
--- NOTE | 2025-03-01 12:34 | P.DS_ITS ---
<Statement entered by Siva Browne MD - 03/01/25 16:41> Rounded on patient after nurse practitioner. Personally examined and interviewed patient. Agree with exam findings and care plan as documented. General Admission date:: 02/28/25 Discharge date: 03/01/25 HPI HPI HPI: Mr. Kwan is a 44-year-old male who presents to the ER with complaints of muscle cramps. Patient has a past medical history of acute kidney injury, heat exhaustion, obesity, and tobacco use. Patient states onset of muscle cramps started today. He states this has happened 3 times in the past. Reported drinking water, Gatorade, and tea today. He denies muscle spasms at this time. He denies fever/chills, cough, dyspnea, chest pain, nausea, emesis, diarrhea, abdominal pain, lightheadedness, dizziness, or syncope. Hospital Course Hospital Course Hospital Course: Mr. Kwan is a 44-year-old male who was admitted to the hospital yesterday after coming to the emergency department with complaints of muscle cramps. He does have a significant past medical history of heat exhaustion, obesity, tob acco use disorder and previous acute kidney injury. Workup in the emergency department revealed a MUSA, creatinine 2.8 and a CK of 341. Decision was made by the hospital medicine team to admit patient overnight for IV fluids and to monitor kidney function. Repeat BMP today shows much improved kidney function, creatinine 1.6. Patient states he feels much better after IV hydration and increased p.o. intake. Patient does state that he was outdoors in extreme heat and feels that he was not drinking enough. Discussed preventative measures. #MUSA #Acute dehydration #Heat exhaustion ?Patient's creatinine trended down from 2.8-1.6 today. ?Patient states he feels much better today, denies muscle cramps, body aches. ?Patient able to tolerate p.o. intake without issues. ?Patient currently does not have a primary care provider, we will make him an appointment with someone to have kidney function rechecked. #Elevated A1c ?Patient A1c 7.4. Discussed the need for follow-up with a PCP. #Leukocytosis ?Patient initial white count was 17.0, today trending down to 11.8. ?Patient has remained normotensive and afebrile. Total time spent on discharge 31 minutes in counseling, documentation, chart review, and direct care with patient. Exam Data for Last 24 hours Vital signs and Labs for Last 24 Hours: Temp Pulse Resp BP Pulse Ox O2 Del Method 97.9 F 71 16 136/85 94 L Room Air 03/01/25 08:00 03/01/25 08:00 03/01/25 08:00 03/01/25 08:00 03/01/25 08:00 03/01/25 11:00 Laboratory Results - last 24 hr 02/28/25 15:51: WBC 17.0 H, RBC 6.09, Hgb 18.7 H, Hct 54.5 H, MCV 89.5, MCH 30.7, MCHC 34.3, RDW 12.8, Plt Count 374, MPV 11.1 H, Neut % (Auto) 72.5, Lymph % (Auto) 17.7, [place] % (Auto) 8.3, Eos % (Auto) 0.6, Baso % (Auto) 0.6, Neut # (Auto) 12.3 H, Lymph # (Auto) 3.0, [place] # (Auto) 1.4 H, Eos # (Auto) 0.1, Baso # (Auto) 0.1, PT 11.5, INR 1.04, Sodium 136, Potassium 3.7, Chloride 94 L, Carbon Dioxide 19 L, Anion Gap 26.7 H, BUN 32 H, Creatinine 3.70 H, Estimated Creat Clear 47, Estimated GFR 18 L*, Est GFR ( Amer) 22 L, Glucose 197 H, Hemoglobin A1c 7.4 H, Calcium 11.7 H, Magnesium 2.2, Total Bilirubin 1.2, AST 43, ALT 58, Alkaline Phosphatase 105, Total Creatine Kinase 432 H, Troponin I 0.02, Total Protein > 11.0 H D, Albumin 5.6 H, Globulin 5.4 H, Albumin/Globulin Ratio 1.0 L, HCV Ab CHEN w/Rflx PCR Qn Negative, HIV Ag/Ab Combo Qual Negative 02/28/25 15:53: VBG pH 7.31, VBG pCO2 37.5, VBG pO2 40.3 H, VBG HCO3 18.2 L, VBG Total CO2 19.4 L, VBG O2 Saturation 73.1 H, VBG Base Excess -8.1 L, VBG Lactic Acid 4.1 H 02/28/25 17:15: Urine Color Yellow, Urine Appearance Clear, Urine pH 5.5, Ur Specific [place] 1.029, Urine Protein 3+ A, Urine Glucose (UA) Negative, Urine Ketones 1+, Urine Blood Trace-i, Urine Nitrate Negative, Urine Bilirubin 1+ A, Urine Urobilinogen 2.0, Ur Leukocyte Esterase Negative, Urine RBC 3-5, Urine WBC 5-10, Ur Squamous Epith Cells 5-10, Uric Acid Crystals 3+, Amorphous Sediment 3+, Urine Bacteria 4+ 02/28/25 18:21: Sodium 134 L, Potassium 4.3, Chloride 94 L, Carbon Dioxide 26, Anion Gap 18.3 H, BUN 35 H, Creatinine 2.80 H D, Estimated Creat Clear 62, Estimated GFR 25 L, Est GFR ( Amer) 30 L D, Glucose 124 H D, Calcium 10.9 H, Total Bilirubin 0.9, AST 36, ALT 45, Alkaline Phosphatase 94, Total Creatine Kinase 341 H, Troponin I < 0.01, Total Protein 8.3 H, Albumin 5.1 H, Globulin 3.2, Albumin/Globulin Ratio 1.6 02/28/25 20:20: Lactate 1.4 02/28/25 22:13: Troponin I < 0.01 03/01/25 04:55: WBC 11.8 H D, RBC 4.81, Hgb 14.7 D, Hct 43.5, MCV 90.4, MCH 29.7, MCHC 32.9, RDW 13.0, Plt Count 250 D, MPV 11.7 H, Neut % (Auto) 50.3, Lymph % (Auto) 38.9, [place] % (Auto) 8.7, Eos % (Auto) 1.4, Baso % (Auto) 0.4, Neut # (Auto) 5.9, Lymph # (Auto) 4.6 H, [place] # (Auto) 1.0, Eos # (Auto) 0.2, B aso # (Auto) 0.1, Sodium 135 L, Potassium 3.4 L D, Chloride 101, Carbon Dioxide 26, Anion Gap 11.4, BUN 31 H, Creatinine 1.60 H D, Estimated Creat Clear 107, Estimated GFR 47 L, Est GFR ( Amer) 57 L D, Glucose 128 H, Calcium 8.5 I & O for Last 24 hours: Intake & Output 02/26/25 02/27/25 02/28/25 03/01/25 23:59 23:59 23:59 23:59 Intake Total 120 / 120 Output Total 100 / 100 Balance -100 / -100 120 / 120 Weight 129.274 kg 126.688 kg Constitutional Constitutional: no acute distress and obese *Routine HEENT Exam Head: Present normocephalic Eye: Present EOMI and PERRL ENT: Present mucous membranes moist *Routine Neck Exam Neck: Present supple; Absent lymphadenopathy *Routine Respiratory Exam Respiratory: Present CTA bilaterally, able to speak in complete sentences and symmetric chest movement; Absent rhonchi, wheezes or crackles *Routine Cardiovascular Exam Cardiovascular: Present RRR *Routine Abdominal Exam Abdominal: Present soft and normoactive bowel sounds; Absent tenderness *Routine Extremities Exam Extremities: Present full ROM; Absent cyanosis, clubbing or edema Comments: No tenderness *Routine Skin Exam Skin: Present intact and warm; Absent rash *Routine Neurological Exam Neurological: Present alert, oriented X3 and moving all extremities; Absent altered mental status Results Data Completed and Pending Labs on day of discharge: Labs from last 24 hours 03/01/25 02/28/25 02/28/25 04:55 22:13 20:20 WBC 11.8 H D RBC 4.81 Hgb 14.7 D Hct 43.5 MCV 90.4 MCH 29.7 MCHC 32.9 RDW 13.0 Plt Count 250 D MPV 11.7 H Neut % (Auto) 50.3 Lymph % (Auto) 38.9 [place] % (Auto) 8.7 Eos % (Auto) 1.4 Baso % (Auto) 0.4 Neut # (Auto) 5.9 Lymph # (Auto) 4.6 H [place] # (Auto) 1.0 Eos # (Auto) 0.2 Baso # (Auto) 0.1 PT INR VBG pH VBG pCO2 VBG pO2 VBG HCO3 VBG Total CO2 VBG O2 Saturation VBG Base Excess VBG Lactic Acid Sodium 135 L Potassium 3.4 L D Chloride 101 Carbon Dioxide 26 Anion Gap 11.4 BUN 31 H Creatinine 1.60 H D Estimated Creat Clear 107 Estimated GFR 47 L Est GFR ( Amer) 57 L D Glucose 128 H Hemoglobin A1c Lactate 1.4 Calcium 8.5 Magnesium Total Bilirubin AST ALT Alkaline Phosphatase Total Creatine Kinase Troponin I < 0.01 Total Protein Albumin Globulin Albumin/Globulin Ratio Urine Color Urine Appearance Urine pH Ur Specific [place] Urine Protein Urine Glucose (UA) Urine Ketones Urine Blood Urine Nitrate Urine Bilirubin Urine Urobilinogen Ur Leukocyte Esterase Urine RBC Urine WBC Ur Squamous Epith Cells Uric Acid Crystals Amorphous Sediment Urine Bacteria HCV Ab CHEN w/Rflx PCR Qn HIV Ag/Ab Combo Qual 02/28/25 02/28/25 02/28/25 18:21 17:15 15:53 WBC RBC Hgb Hct MCV MCH MCHC RDW Plt Count MPV Neut % (Auto) Lymph % (Auto) [place] % (Auto) Eos % (Auto) Baso % (Auto) Neut # (Auto) Lymph # (Auto) [place] # (Auto) Eos # (Auto) Baso # (Auto) PT INR VBG pH 7.31 VBG pCO2 37.5 VBG pO2 40.3 H VBG HCO3 18.2 L VBG Total CO2 19.4 L VBG O2 Saturation 73.1 H VBG Base Excess -8.1 L VBG Lactic Acid 4.1 H Sodium 134 L Potassium 4.3 Chloride 94 L Carbon Dioxide 26 Anion Gap 18.3 H BUN 35 H Creatinine 2.80 H D Estimated Creat Clear 62 Estimated GFR 25 L Est GFR ( Amer) 30 L D Glucose 124 H D Hemoglobin A1c Lactate Calcium 10.9 H Magnesium Total Bilirubin 0.9 AST 36 ALT 45 Alkaline Phosphatase 94 Total Creatine Kinase 341 H Troponin I < 0.01 Total Protein 8.3 H Albumin 5.1 H Globulin 3.2 Albumin/Globulin Ratio 1.6 Urine Color Yellow Urine Appearance Clear Urine pH 5.5 Ur Specific [place] 1.029 Urine Protein 3+ A Urine Glucose (UA) Negative Urine Ketones 1+ Urine Blood Trace-i Urine Nitrate Negative Urine Bilirubin 1+ A Urine Urobilinogen 2.0 Ur Leukocyte Esterase Negative Urine RBC 3-5 Urine WBC 5-10 Ur Squamous Epith Cells 5-10 Uric Acid Crystals 3+ Amorphous Sediment 3+ Urine Bacteria 4+ HCV Ab CHEN w/Rflx PCR Qn HIV Ag/Ab Combo Qual 02/28/25 15:51 WBC 17.0 H RBC 6.09 Hgb 18.7 H Hct 54.5 H MCV 89.5 MCH 30.7 MCHC 34.3 RDW 12.8 Plt Count 374 MPV 11.1 H Neut % (Auto) 72.5 Lymph % (Auto) 17.7 [place] % (Auto) 8.3 Eos % (Auto) 0.6 Baso % (Auto) 0.6 Neut # (Auto) 12.3 H Lymph # (Auto) 3.0 [place] # (Auto) 1.4 H Eos # (Auto) 0.1 Baso # (Auto) 0.1 PT 11.5 INR 1.04 VBG pH VBG pCO2 VBG pO2 VBG HCO3 VBG Total CO2 VBG O2 Saturation VBG Base Excess VBG Lactic Acid Sodium 136 Potassium 3.7 Chloride 94 L Carbon Dioxide 19 L Anion Gap 26.7 H BUN 32 H Creatinine 3.70 H Estimated Creat Clear 47 Estimated GFR 18 L* Est GFR ( Amer) 22 L Glucose 197 H Hemoglobin A1c 7.4 H Lactate Calcium 11.7 H Magnesium 2.2 Total Bilirubin 1.2 AST 43 ALT 58 Alkaline Phosphatase 105 Total Creatine Kinase 432 H Troponin I 0.02 Total Protein > 11.0 H D Albumin 5.6 H Globulin 5.4 H Albumin/Globulin Ratio 1.0 L Urine Color Urine Appearance Urine pH Ur Specific [place] Urine Protein Urine Glucose (UA) Urine Ketones Urine Blood Urine Nitrate Urine Bilirubin Urine Urobilinogen Ur Leukocyte Esterase Urine RBC Urine WBC Ur Squamous Epith Cells Uric Acid Crystals Amorphous Sediment Urine Bacteria HCV Ab CHEN w/Rflx PCR Qn Negative HIV Ag/Ab Combo Qual Negative DS: Diagnosis Discharge Diagnosis (1) MUSA (acute kidney injury): Status: Acute Code(s): N17.9 - Acute kidney failure, unspecified (2) Acute dehydration: Status: Acute Code(s): E86.0 - Dehydration (3) Heat exhaustion: Status: Acute Code(s): T67.5XXA - Heat exhaustion, unspecified, initial encounter Qualifiers: Encounter type: initial encounter Qualified Code(s): T67.5XXA - Heat exhaustion, unspecified, initial encounter (4) Leukocytosis: Status: Acute Code(s): D72.829 - Elevated white blood cell count, unspecified (5) Elevated lactic acid level: Status: Acute Code(s): R79.89 - Other specified abnormal findings of blood chemistry (6) Muscle spasm: Status: Acute Code(s): M62.838 - Other muscle spasm (7) Current smoker: Status: Acute Code(s): F17.200 - Nicotine dependence, unspecified, uncomplicated (8) Elevated hemoglobin A1c: Status: Acute Code(s): R73.09 - Other abnormal glucose Meds Home Medications and Allergies Home Medications ?Medication ?Instructions ?Recorded ?Confirmed ?Type No Known Home Medications 03/09/2402/05 History New Prescriptions to Start Prescriptions: Allergies Allergy/AdvReac Type Severity Reaction Status Date / Time codeine Allergy Unknown Verified 03/09/24 08:54 allergy reaction Penicillins Allergy Unknown Verified 03/09/24 08:54 allergy reaction mustard AdvReac Nausea Verified 03/09/24 16:18 Discharge Plan Disposition Patient Disposition: Home, Self-Care Condition: Fair Follow up Plan Prescriptions/Medication Reconciliation: Continued No Known Home Medications Problem Reconciliation Problems Reviewed?: Yes Patient Discharge Instructions ACTIVITY: Continue current activity DIET: continue same diet Patient Instructions: DI for Dehydration -- Adult, Acute Kidney Injury Print Language: [place] Providers Primary Care Provider: Provider,Referral Admit Provider: Siva Browne Attending Provider: Siva Browne
--- NOTE | 2025-03-02 10:08 | SW/DCPLANNER ---
Spoke with patient on the phone. Patient stated that he is feeling pretty good. Patient stated that he was not prescribed any new medicine. Patient stated that he is aware of his upcoming appointment. Patient stated that he has no concerns or questions at this time. Doretha Meier
== END 2025-03-01 11:48 | disposition home or self-care (01) ==
LOC: ER 19:20 → 2ND 19:29
PROVIDERS: Nurse Practitioner Family; Physician Assistant; Admitting Provider Internal Medicine Adolescent Medicine; Emergency Provider Emergency Medicine; Visit Provider Internal Medicine Adolescent Medicine
DX: N17.9 Acute kidney failure, unspecified (principal); E86.0 Dehydration; T67.5XXA Heat exhaustion, unspecified, initial encounter; M62.838 Other muscle spasm; D72.829 Elevated white blood cell count, unspecified; F17.200 Nicotine dependence, unspecified, uncomplicated; R73.09 Other abnormal glucose; E87.20 Acidosis, unspecified; I45.10 Unspecified right bundle-branch block; E66.9 Obesity, unspecified; Z88.5 Allergy status to narcotic agent; Z88.0 Allergy status to penicillin; Z91.018 Allergy to other foods; Z68.41 Body mass index [BMI] 40.0-44.9, adult
CPT/HCPCS: 96361 ×2; 96374; 36415; 80048; 80053; 81001; 82550; 82803; 83036; 83605; 83735; 84484; 85025; 85610; 86803; 87040; 87086; 87389; 93005; G0378; J0696; J1644; J7030; J7120

== ENCOUNTER 2025-03-30 19:23 | Emergency (ER) | payer OTHER, SELFPAY | END 2025-03-30 19:34 | disposition left against medical advice (07) | LOC: ER 19:33 | PROVIDERS: Emergency Provider Student in an Organized Health Care Education/Training Program | DX: Z53.21 Procedure and treatment not carried out due to patient leaving prior to being seen by health care provider (principal) | CPT/HCPCS: 99211 ==